=== PATIENT | male | born 1945 | race Caucasian/White ===

== ENCOUNTER 2017-01-28 17:25 | Inpatient (IN) | payer MEDICARE ==
[~2017-01-28] VITALS: Ht 177.8 cm; Wt 89.3 kg
[~2017-01-28 17:25] MED LIST: BENADRYL-DPS25 MG PO; CELEXA40 M1 PO; DULCOLAX10 MG PR; EFFEXOR XR75 MG PO; GABAPENTIN300 MG PO; IRON325 MG PO; LORTAB 7.5-3251 EACH PO; MAALOX DPS30 ML PO; MIRALAX17 GM PO; NITROSTAT0.4 MG PO; PERCOCET 7.5-31 EACH PO; PROVENTIL2.5 MG/3 M IH; TYLENOL DPS325 MG PO; VITAMIN D-32000 UNI1 PO; ZITHROMAX500 MG PO
--- NOTE | 2017-01-29 00:04 | ER ---
ADMIT: 01/28/2017 RM/LOC: ER [facility] MR#: [id number] [address] [address] IVONNE OSRENSEN [address] [place] [address] Emergency Room Report SEX: M AGE: 71 : 1945 DATE: 01/28/2017 ADDENDUM: TIME: 1725 hours. Please refer to [address] White's T sheet for complete H and P. Briefly, the patient is a 71-year-old who comes in with cough, short of breath, and chills. It has been going on for couple days. He has a longstanding history of COPD, he is not O2 dependent at this time. He continues to smoke a pack a day. He said he is coughing up a lot of phlegm. He has felt chilled. PHYSICAL EXAM: VITAL SIGNS: Here blood pressure 159/94, pulse 69, respirations 26, temp 98.3, and sat 97%. GENERAL: No acute distress. HEENT: Grossly normal. LUNGS: Coarse with expiratory wheezes. EMERGENCY DEPARTMENT COURSE: He was given a DuoNeb, Decadron 20 IV. Sepsis protocol was established. Chest x-ray revealed COPD with left lower lobe infiltrate. CBC normal except hemoglobin 13.3 and platelets 134. Chemistries normal except sodium 131. Lactate was normal. Cardiac enzymes negative. Blood cultures x2 were sent. ABG showed a pH 7.4, pCO2 of 33, PO2 of 62. Started him on an antibiotic in the Emergency Department. I called the sepsis protocol. I talked to Dr. Michel, will admit to the hospital. ASSESSMENT: 1. Left lower lobe pneumonia. 2. Chronic obstructive pulmonary disease exacerbation. 3. Hypoxemia, requiring O2 here. 4. Nicotine abuse. PLAN: Admit to the hospital. Sekou Emmanuel MD/ shavon JOB #: [id number] CC: Jeremy White MD, Attending Physician Jamal Ennis MD, Family Physician
[2017-01-31] MEDS ORDERED: MUCINEX600 MG PO (20:34)
[2017-01-31] MEDS ORDERED: LEVAQUIN DPS750 MG PO (20:36)
[2017-01-31] MEDS ORDERED: DUONEB DPS3 ML IH (20:36)
--- NOTE | 2017-02-04 09:12 | DS ---
ADMIT: 01/28/2017 RM/LOC: 410 [facility] MR#: [id number] [address] [address] IVONNE SORENSEN [address] [place] [address] Discharge Summary SEX: M AGE: 71 : 1945 ADMISSION DATE: 01/28/2017 DISCHARGE DATE: 01/31/2017 FINAL DIAGNOSES: 1. Acute hypoxic respiratory failure. 2. Left lower lobe pneumonia. 3. COPD (chronic obstructive pulmonary disease) exacerbation. 4. Chronic COPD (chronic obstructive pulmonary disease). 5. Hypertension. 6. Hyperlipidemia. 7. Smoker. 8. Chronic back pain. 9. Chronic narcotic use. 10.Depression. 11.Anxiety. 12.Gastroesophageal reflux. REASON FOR ADMISSION: The patient is a 71-year-old, white male, who presented to the hospital with increasing shortness of breath, weakness and productive cough. Has a history of COPD and was not improving with outpatient treatments. Was noted to be quite wheezy scattered rhonchi on admission and was requiring oxygen which he does not usually at home. HOSPITAL COURSE: The patient was admitted and started on vancomycin, IV steroids and given DuoNebs. Cardiac enzymes were also checked and were negative. Continued on his other home medications. Did improve gradually over the next couple of days. Levaquin was added for coverage. Also added Mucinex which helped him produce some sputum. Blood cultures were negative. He was able to be on room air by 01/31, was feeling better and felt ready to discharge. DISCHARGE INSTRUCTIONS: The patient will be discharged to home with followup with Dr. Ennis in two weeks. DISCHARGE MEDICATIONS: 1. Aspirin 81 mg daily. 2. Coreg 25 mg b.i.d. 3. Trazodone 200 mg at bedtime. 4. Effexor XR 150 mg daily. 5. Levaquin 750 mg daily for 7 more doses. 6. Mucinex 1200 mg b.i.d. ADMIT: 01/28/2017 RM/LOC: 410 [facility] MR#: [id number] [address] [address] IVONNE SORENSEN [address] [place] [address] Discharge Summary SEX: M AGE: 71 : 1945 7. Neurontin 600 mg b.i.d. 8. Protonix 40 mg b.i.d. 9. Soma 350 mg q.i.d. 10.Multivitamin daily. 11.Vitamin B12 1000 mcg daily. 12.Zestril 20 mg b.i.d. 13.Zocor 5 mg at bedtime. 14.DuoNebs q.i.d. and q.2 hours p.r.n. 15.Prednisone taper starting at 40 mg daily and tapering off over the next 16 days. 16.He also uses Percocet 10 1-2 every 4 hours as needed. 17.Zofran 8 mg q.8 hours p.r.n. Katty Fung MD/ gardenia JOB #: [id number] CC: Jamal Ennis MD, Attending Physician Jamal Ennis MD, Family Physician
[2017-02-08] MEDS ORDERED: NORVASC2.5 MG PO (10:14)
[2017-02-08] MEDS ORDERED: NICODERM CQ1 EAC1 TP (10:15)
--- NOTE | 2017-02-15 13:17 | HP ---
ADMIT: 01/28/2017 RM/LOC: 410 [facility] MR#: [id number] [address] [address] IVONNE SORENSEN [address] [place] [address] History and Physical SEX: M AGE: 71 : 1945 DATE OF SERVICE: CHIEF COMPLAINT: Shortness of breath, lethargy times 1-2 days. HISTORY OF PRESENT ILLNESS: The patient is a 71-year-old male with a multitude of chronic illnesses, who states that for the last 2-3 days, he has been more tired, but specifically the last 24 hours, he has been more short of breath. He states he was out mowing the yard yesterday, and afterward he started becoming more short of breath and coughing more. He denies any chest pain or palpitations. He also denies having any seasonal allergies. He says he has been coughing but for the most part has been just normal sputum production, no green or yellow. Daughter mentions that he has been more lethargic and she has been having to yell at him to get his attention over the last couple of days as well. He denies any other upper respiratory symptoms like rhinorrhea or sore throat or sinus congestion. Denies fever, but he does mention he has been having some chills and some body aches as well. The patient presented to the ER and he was hypoxic. Initially, he was started on supplemental oxygen, and he was meeting sepsis criteria, so that protocol was put in place in the ER. PAST MEDICAL HISTORY: Significant for hypertension, COPD, depression, hyperlipidemia, chronic pain syndrome, organic sleep apnea, nicotine dependence. PAST SURGICAL HISTORY: Significant for back fusion L4-S1 spine, nephrectomy for renal cell cancer, surgery for esophageal cancer, appendectomy, and hernia surgery. SOCIAL HISTORY: Former alcoholic, currently smokes. Denies any drug use. He is on chronic pain medications. ALLERGIES: INCLUDE PENICILLIN AND SULFA DRUGS. FAMILY HISTORY: Significant for stroke, heart disease, depression, and lung cancer. REVIEW OF SYSTEMS: CONSTITUTIONAL: Positive chills, body aches, lethargy. No fever. HEENT: Positive for headache. No sore throat. No rhinorrhea. No ear discharge or ear pain. No visual changes. HEART: No palpitations. No chest pain. LUNGS: Positive shortness of breath. Positive for wheeze. Positive crackles. Positive for shortness of breath. ABDOMEN: No change in bowel movements. No pain. No nausea or vomiting. EXTREMITIES: No edema, but he does mention he has chronic aches and pains, specifically chronic back pain. NEURO: Cranial nerves II through XII are grossly intact. LABORATORY AND X-RAY DATA: UA was normal. Chest x-ray shows mild bilateral ADMIT: 01/28/2017 RM/LOC: 410 [facility] MR#: [id number] [facility] [place] [id number] SORENSENIVONNE ESCOBAR [address] [place] [address] History and Physical SEX: M AGE: 71 : 1945 atelectasis versus consolidation . Procalcitonin was normal. Blood cultures were drawn and are pending. Lactic acid is normal at 0.6. INR is 1.04. Electrolytes; sodium is slightly low at 131, potassium 4.4, 106 chloride, 22 C02, 9 for BUN, 0.8 for creatinine, glucose is 89. AST, ALT, and bilirubin are normal. ABG in the ER showed a normal pH of 7.402, CO2 of 33.8 and O2 of 62. CBC: White blood cell count was 6.4, hemoglobin 13.3, platelets were low at 134. ASSESSMENT AND PLAN: This is a 71-year-old male who presents with shortness of breath, cough, and lethargy over the last few days. 1. Acute respiratory failure with hypoxia requiring oxygen. 2. Left lower lobe pneumonia versus atelectasis. 3. Chronic obstructive pulmonary disease exacerbation. 4. Hypertension. 5. Hyperlipidemia. 6. Nicotine abuse. I will admit this patient and start him on antibiotic, steroids, and DuoNebs. I will continue to monitor his vital signs and electrolytes. Patient's chronic medical problems like his hypertension and hyperlipidemia in accordance with his home regimen. We will also continue patient's current pain medications as scheduled. Keisha Ray MD Resident / Jamal Ennis MD / shavon JOB #: [id number] CC: Jamal Ennis, Attending Physician Jamal Ennis, Family Physician
[2017-03-07] MEDS ORDERED: VITAMIN B-121000 MCG PO (19:38)
[2017-03-07] MEDS ORDERED: DELTASONE DPS1 MG (19:39)
[2017-03-07] MEDS ORDERED: BREO ELLIPTA 21 EACH IH (19:40)
[2017-03-07] MEDS ORDERED: LEVAQUIN DPS750 MG PO (19:40)
[2017-03-07] MEDS ORDERED: PROAIR HFA8.5 GM IH (19:41)
[2017-05-18] MEDS ORDERED: ASA CHILDREN'S81 MG PO (16:10)
[2017-05-18] MEDS ORDERED: CENTRUM SILVER1 EAC1 PO (16:10)
[2017-05-18] MEDS ORDERED: ZESTRIL20 MG PO (16:10)
[2017-05-18] MEDS ORDERED: PROTONIX40 MG PO (16:10)
[2017-05-18] MEDS ORDERED: ZOCOR DPS10 MG PO (16:10)
[2017-05-18] MEDS ORDERED: EFFEXOR XR150 MG PO (16:11)
[2017-05-18] MEDS ORDERED: DESYREL DPS100 MG PO (16:11)
[2017-05-18] MEDS ORDERED: CARVEDILOL25 MG PO (16:11)
[2017-05-18] MEDS ORDERED: SOMA350 MG PO (16:12)
[2017-05-18] MEDS ORDERED: PERCOCET 10-321 EACH PO (16:12)
[2017-05-18] MEDS ORDERED: NEURONTIN DPS600 MG PO (16:12)
[2017-05-18] MEDS ORDERED: ZOFRAN DPS8 MG PO (16:14)
[2017-05-18] MEDS ORDERED: LASIX DPS40 MG PO (16:34)
[2017-05-18] MEDS ORDERED: IRON325 M1 PO (16:36)
[2017-05-18] MEDS ORDERED: MEN'S MULTI-VI1 EACH PO (16:36)
[2017-05-18] MEDS ORDERED: VITAMIN D1000 UNI1 PO (16:36)
[2017-05-18] MEDS ORDERED: MUCINEX600 MG PO (16:36)
[2017-05-18] MEDS ORDERED: PULMICORT0.25 MG/1 IH (16:37)
[2017-05-18] MEDS ORDERED: IPRATROPIU0.2 MG/1 M IH (16:38)
[2017-05-18] MEDS ORDERED: ALBUTEROL0.63 MG/3 IH (16:38)
[2017-05-18] MEDS ORDERED: NICOTINE PATCH1 EAC1 TD (16:39)
[2017-05-18] MEDS ORDERED: COLACE-DPS100 MG PO (16:40)
[2017-05-18] MEDS ORDERED: MAALOX DPS30 ML PO (16:40)
[2017-05-18] MEDS ORDERED: NITROSTAT0.4 MG SL (16:40)
[2017-05-18] MEDS ORDERED: SPIRIVA18 MCG IH (16:40)
[2017-05-18] MEDS ORDERED: TYLENOL DPS325 MG PO (16:40)
[2017-05-26] MEDS ORDERED: PROVENTIL2.5 MG/3 M IH (13:55)
[2017-05-26] MEDS ORDERED: DUONEB DPS3 ML IH (13:55)
[2017-05-26] MEDS ORDERED: STIOLTO RESPIMAT4 GM IH (13:56)
[2017-05-26] MEDS ORDERED: FLOMAX DPS0.4 MG PO (13:56)
[2017-05-26] MEDS ORDERED: BIAXIN500 MG PO (13:57)
[2017-05-26] MEDS ORDERED: PHENERGAN DPS25 MG PO (13:57)
[2017-05-26] MEDS ORDERED: PERCOCET 10-321 EACH PO (13:57)
[2017-05-26] MEDS ORDERED: KLOR-CON M2020 ME1 PO (13:57)
== END 2017-01-31 11:45 | disposition home or self-care (01) | DRG 189 ==
LOC: ER 17:25 → 4PCU 19:15
PROVIDERS: ADMIT Family Medicine
DX: J96.01 Acute respiratory failure with hypoxia (principal); J18.9 Pneumonia, unspecified organism; J44.0 Chronic obstructive pulmonary disease with (acute) lower respiratory infection; J44.1 Chronic obstructive pulmonary disease with (acute) exacerbation; F17.210 Nicotine dependence, cigarettes, uncomplicated; I10 Essential (primary) hypertension; F10.21 Alcohol dependence, in remission; F32.9 Major depressive disorder, single episode, unspecified; F41.9 Anxiety disorder, unspecified; M54.9 Dorsalgia, unspecified; K21.9 Gastro-esophageal reflux disease without esophagitis; E78.5 Hyperlipidemia, unspecified; G89.4 Chronic pain syndrome; G47.30 Sleep apnea, unspecified; Z98.1 Arthrodesis status; Z90.5 Acquired absence of kidney; Z85.528 Personal history of other malignant neoplasm of kidney; Z85.01 Personal history of malignant neoplasm of esophagus

== ENCOUNTER 2017-02-03 16:12 | Inpatient (IN) | payer MEDICARE ==
[~2017-02-03] VITALS: Ht 177.8 cm; Wt 89.7 kg
[~2017-02-03 16:12] MED LIST changes: +DUONEB DPS3 ML IH; +LEVAQUIN DPS750 MG PO; +MUCINEX600 MG PO
--- NOTE | 2017-02-05 16:16 | ER ---
ADMIT: 02/03/2017 RM/LOC: 427 [facility] MR#: [id number] [address] [address] IVONNE SORENSEN [address] [place] [address] Emergency Room Report SEX: M AGE: 71 : 1945 DATE: 02/03/2017 ADDENDUM: This is a 71-year-old white male with known COPD. Recently admitted for acute pneumonia and/or bronchitis, discharged Thursday, was doing well except he did go back and start smoking again. He is weaker. He is short of breath. Chest x-ray actually looks a little better. He is not septic. His pressure was fine. His white count was 10.8. His lactate was 1.2. Chest x-ray actually looked pretty good at this time. At this time, we have given him DuoNeb. We are going to give him some steroids. We are going to cover him with antibiotics and then they will admit him. CONDITION ON DISCHARGE: Serious, but stable. Jeremy hWite MD/ shavon JOB #: [id number] CC: Jamal Ennis MD, Attending Physician Jamal Ennis MD, Family Physician
[2017-02-08] MEDS ORDERED: NORVASC2.5 MG PO (10:14)
[2017-02-08] MEDS ORDERED: NICODERM CQ1 EAC1 TP (10:15)
--- NOTE | 2017-02-15 11:58 | HP ---
ADMIT: 02/03/2017 RM/LOC: 427 [facility] MR#: [id number] [address] [address] IVONNE SORENSEN [address] [place] [address] History and Physical SEX: M AGE: 71 : 1945 DATE OF SERVICE: CHIEF COMPLAINT: Shortness of breath, wheezing, cough, and some fatigue. HISTORY OF PRESENT ILLNESS: The patient is a 71-year-old male with a multitude of chronic illnesses who was actually just recently here in the hospital, recently discharged on 01/31/2017 for the exact same symptoms. At that time, the patient was admitted for an acute exacerbation of the COPD and possible left lower lobe pneumonia. The patient was treated with antibiotics, steroids, and DuoNebs and continued to improve and he again left on 01/31/2017. The patient admits to going home and continuing to smoke. He does confirm that he has been taking his medications as prescribed, but he just started having more shortness of breath over the last day or so and is also becoming more fatigued. He felt that he is wheezy and the coughing was worse. Denies chest pain or palpitations. Sputum production has been normal, no green or yellow. He does have a little bit of a sore throat, but no sinus congestion. Denies fever or body aches, has not noticed any swelling in his lower extremities or edema in his lower extremities. No nausea, vomiting, or diarrhea. He has had some constipation; however. The patient states he is having no problems with urination. No burning or blood in the urine. The patient was meeting sepsis criteria when he arrived to the ER, so sepsis protocol was instituted at that time. PAST MEDICAL HISTORY: Significant for COPD, hypertension, depression, hyperlipidemia, chronic pain syndromes, organic sleep apnea, and nicotine dependence. He also has a history of alcoholism. PAST SURGICAL HISTORY: Back fusion of L4-S1, nephrectomy for renal cell cancer, surgery for esophageal cancer, appendectomy, and hernia repair. SOCIAL HISTORY: Former alcoholic, currently smokes. Denies any other drug use. He is on chronic pain medications. Lives at home with his , who also is a chronic smoker. ALLERGIES: INCLUDE PENICILLIN AND SULFA DRUGS. FAMILY HISTORY: Significant for stroke, heart disease, depression, and lung cancer. REVIEW OF SYSTEMS: CONSTITUTIONAL: Negative for fever. Positive for fatigue. No body aches or chills. HEENT: No headache. No rhinorrhea. No ear discharge or ear pain. No visual changes or eye pain. He does have some sore throat, however, with coughing. HEART: No chest pain. No palpitations. No lower extremity edema. LUNGS: Positive for shortness of breath. Positive for wheezing. Positive for worsening shortness of breath with exertion. ABDOMEN: No change in nausea and vomiting. No pain. He does have some constipation. EXTREMITIES: No edema. No erythema or rashes. Does have some chronic ADMIT: 02/03/2017 RM/LOC: 427 [facility] MR#: [id number] [address] [place] [id number] IVONNE SORENSEN [address] [place], [place] [address] [address] History and Physical SEX: M AGE: 71 : 1945 arthritis in his lower extremities especially, has some arthritis in his low back and neck. NEUROLOGIC: No seizure or stroke-like activities. Feels like he has good strength in his muscles. ER workup shows a chest x-ray that appears to be unchanged since the last chest x-ray on 01/30/2017, maybe some vascular congestion. Procal was normal less than 0.05. Blood cultures are pending. Lactic acid is 1.2. INR is 1.15. White blood cell count was mildly elevated at 10.8, hemoglobin is 13.8, and platelets are 179. Cardiac enzymes; CK was 59, MB was 2.7, and troponin was 0.026. Electrolytes; sodium is slightly low at 133, potassium is 4.2, chloride is 98, CO2 is 29, BUN of 16, creatinine of 1, and glucose of 108. PHYSICAL EXAMINATION: VITAL SIGNS: Temperature is 99.0 when arriving to the floor, heart rate was 67, respirations are 20, blood pressure was initially 174/98. On retake, it was 153/75. GENERAL: No acute distress. He is alert and oriented x3, very pleasant. HEENT: Normocephalic and atraumatic. Moist mucous membranes. Extraocular muscles are intact. Pupils equal, round, and reactive. HEART: Regular rate and rhythm. No murmur. LUNGS: Coarse breath sounds bilaterally and wheezing bilaterally with increased work of breathing. ABDOMEN: Soft, nontender. Positive bowel sounds. EXTREMITIES: No signs of edema, erythema, or joint swelling. NEUROLOGIC: Cranial nerves II through XII are grossly intact. ASSESSMENT AND PLAN: This is a 71-year-old male, who presents with shortness of breath, cough, and wheezing, most recently being discharged from the hospital for similar symptoms on 01/31/2017. 1. Acute chronic obstructive pulmonary disease exacerbation. 2. Hypertension. 3. Hyperlipidemia. ADMIT: 02/03/2017 RM/LOC: 427 [facility] MR#: [id number] [address] [place] [phone] IVONNE SORENSEN [facility] [place] [address] History and Physical SEX: M AGE: 71 : 1945 4. Nicotine dependence. The patient was sent out on p.o. Levaquin, p.o. steroids, and DuoNeb. We will continue the patient's DuoNeb, but we will start the patient on IV antibiotics and IV steroids. The patient does voice to me that he would like to quit smoking. He says he has tried Chantix in the past that made him feel suicidal. He is unsure if he has tried Wellbutrin. This may be worth giving a try as an outpatient when the patient is no longer nicotine patches. We have discussed at length the importance of quitting smoking both for his health and his immediate conditions. We discussed how in that this is probably one of the main reasons he is back here in the hospital because he continues to smoke. I will continue to monitor the patient's vital signs, electrolytes, and blood work. Keisha Ray MD Resident / Joseph Rossi MD / shavon JOB #: [id number] CC: Jamal Ennis, Attending Physician Jamal Ennis, Family Physician
--- NOTE | 2017-02-20 07:59 | DS ---
ADMIT: 02/03/2017 RM/LOC: 427 [facility] MR#: [id number] [address] [address] IVONNE SORENSEN [address] [place] [address] General Discharge Summary SEX: M AGE: 71 : 1945 ADMISSION DATE: 02/03/2017 DISCHARGE DATE: 02/06/2017 FINAL DIAGNOSES: 1. Acute chronic obstructive pulmonary disease exacerbation. 2. Chronic obstructive pulmonary disease. 3. Hypertension. 4. Hyperlipidemia. 5. Current smoker. 6. Chronic back pain. 7. Chronic narcotic use. 8. Depression and anxiety. 9. Gastroesophageal reflux disease. REASON FOR ADMIT: The patient is a 71-year-old white male, who presented to the hospital with increasing shortness of breath. The patient was actually just recently discharged from the hospital for similar symptoms and was found to have COPD exacerbation and left lower lobe pneumonia. He has a history of COPD. He was noted to be wheezy and has scattered rhonchi on admission bilaterally and he was requiring oxygen at the time of arrival to the ER. Chest x-ray did not show acute pneumonia at the 2nd admission. HOSPITAL COURSE: The patient was admitted, started on IV Levaquin and later was added on to IV Rocephin. He was also started on IV steroids and DuoNeb. We continued his other home medications. The patient did gradually improve over the next few days. The patient was able to transition to room air the following day after admission, he was feeling better and felt ready to discharge. The patient was discharged home with followup in [address] White. DISCHARGE MEDICATIONS: 1. Baby aspirin daily. 2. Effexor 150 mg daily. 3. Mucinex 1200 mg b.i.d. 4. Norvasc 2.5 mg daily. 5. Soma 350 mg q.i.d. 6. Multivitamin B12. 7. Habitrol 21 mg patch TP, at bedtime. 8. Percocet 10 mg two tabs q.4-6 hours as needed. ADMIT: 02/03/2017 RM/LOC: 427 [facility] MR#: [id number] [address] [address] IVONNE SORENSEN [address] [place] [address] General Discharge Summary SEX: M AGE: 71 : 1945 9. Zofran 8 mg q.8 hours as needed. 10.DuoNeb. 11.Protonix 40 mg b.i.d. 12.Simvastatin 5 mg at bedtime. 13.Lisinopril 20 mg b.i.d. 14.Trazodone 200 mg at bedtime. 15.Coreg 12.5 mg b.i.d. 16.Gabapentin 600 mg b.i.d. 17.Levofloxacin 750 mg for 7 more days. 18.ProAir as needed. 19.He is also sent on a prednisone taper and was highly stressed that he should not continue smoking. Keisha Ray MD Resident / Jamal Ennis MD / modl JOB #: [id number] CC: Jamal Ennis MD, Attending Physician Jamal Ennis MD, Family Physician
[2017-03-07] MEDS ORDERED: VITAMIN B-121000 MCG PO (19:38)
[2017-03-07] MEDS ORDERED: DELTASONE DPS1 MG (19:39)
[2017-03-07] MEDS ORDERED: BREO ELLIPTA 21 EACH IH (19:40)
[2017-03-07] MEDS ORDERED: LEVAQUIN DPS750 MG PO (19:40)
[2017-03-07] MEDS ORDERED: PROAIR HFA8.5 GM IH (19:41)
[2017-05-18] MEDS ORDERED: ZOCOR DPS10 MG PO (16:10)
[2017-05-18] MEDS ORDERED: ZESTRIL20 MG PO (16:10)
[2017-05-18] MEDS ORDERED: CENTRUM SILVER1 EAC1 PO (16:10)
[2017-05-18] MEDS ORDERED: ASA CHILDREN'S81 MG PO (16:10)
[2017-05-18] MEDS ORDERED: PROTONIX40 MG PO (16:10)
[2017-05-18] MEDS ORDERED: DESYREL DPS100 MG PO (16:11)
[2017-05-18] MEDS ORDERED: CARVEDILOL25 MG PO (16:11)
[2017-05-18] MEDS ORDERED: EFFEXOR XR150 MG PO (16:11)
[2017-05-18] MEDS ORDERED: NEURONTIN DPS600 MG PO (16:12)
[2017-05-18] MEDS ORDERED: SOMA350 MG PO (16:12)
[2017-05-18] MEDS ORDERED: PERCOCET 10-321 EACH PO (16:12)
[2017-05-18] MEDS ORDERED: ZOFRAN DPS8 MG PO (16:14)
[2017-05-18] MEDS ORDERED: LASIX DPS40 MG PO (16:34)
[2017-05-18] MEDS ORDERED: MUCINEX600 MG PO (16:36)
[2017-05-18] MEDS ORDERED: IRON325 M1 PO (16:36)
[2017-05-18] MEDS ORDERED: MEN'S MULTI-VI1 EACH PO (16:36)
[2017-05-18] MEDS ORDERED: VITAMIN D1000 UNI1 PO (16:36)
[2017-05-18] MEDS ORDERED: PULMICORT0.25 MG/1 IH (16:37)
[2017-05-18] MEDS ORDERED: ALBUTEROL0.63 MG/3 IH (16:38)
[2017-05-18] MEDS ORDERED: IPRATROPIU0.2 MG/1 M IH (16:38)
[2017-05-18] MEDS ORDERED: NICOTINE PATCH1 EAC1 TD (16:39)
[2017-05-18] MEDS ORDERED: MAALOX DPS30 ML PO (16:40)
[2017-05-18] MEDS ORDERED: COLACE-DPS100 MG PO (16:40)
[2017-05-18] MEDS ORDERED: NITROSTAT0.4 MG SL (16:40)
[2017-05-18] MEDS ORDERED: SPIRIVA18 MCG IH (16:40)
[2017-05-18] MEDS ORDERED: TYLENOL DPS325 MG PO (16:40)
[2017-05-26] MEDS ORDERED: PROVENTIL2.5 MG/3 M IH (13:55)
[2017-05-26] MEDS ORDERED: DUONEB DPS3 ML IH (13:55)
[2017-05-26] MEDS ORDERED: FLOMAX DPS0.4 MG PO (13:56)
[2017-05-26] MEDS ORDERED: STIOLTO RESPIMAT4 GM IH (13:56)
[2017-05-26] MEDS ORDERED: KLOR-CON M2020 ME1 PO (13:57)
[2017-05-26] MEDS ORDERED: PHENERGAN DPS25 MG PO (13:57)
[2017-05-26] MEDS ORDERED: BIAXIN500 MG PO (13:57)
[2017-05-26] MEDS ORDERED: PERCOCET 10-321 EACH PO (13:57)
== END 2017-02-06 10:03 | disposition home or self-care (01) | DRG 192 ==
LOC: ER 16:12 → 4PCU 19:00
PROVIDERS: ADMIT Family Medicine
DX: J44.1 Chronic obstructive pulmonary disease with (acute) exacerbation (principal); I10 Essential (primary) hypertension; J20.9 Acute bronchitis, unspecified; J44.0 Chronic obstructive pulmonary disease with (acute) lower respiratory infection; F32.9 Major depressive disorder, single episode, unspecified; E78.5 Hyperlipidemia, unspecified; F17.210 Nicotine dependence, cigarettes, uncomplicated; F41.9 Anxiety disorder, unspecified; G89.4 Chronic pain syndrome; G47.30 Sleep apnea, unspecified; K59.00 Constipation, unspecified; F10.21 Alcohol dependence, in remission; Z98.1 Arthrodesis status; Z85.528 Personal history of other malignant neoplasm of kidney; Z90.5 Acquired absence of kidney; Z85.01 Personal history of malignant neoplasm of esophagus

== ENCOUNTER 2017-03-01 13:19 | Inpatient (IN) | payer MEDICARE ==
[~2017-03-01] VITALS: Ht 177.8 cm; Wt 86.2 kg
--- NOTE | ~2017-03-01 | ECH ---
Transthoracic Echocardiography Report (TTE) Demographics Patient Name IVONNE SORENSEN Date of Study 03/02/2017 Patient Number [id number] Visit Number [id number] Date of 1945 Room Number 407 Accession Number [id number] Gender Male Age 71 year(s) Referring Rene HOFFMAN Director Of User Experience Maia Vazquez [facility] Physician Andrea Malhotra MD Physician Interpreting Sunshine Holden MD Equity Research Associate Physician Supervising Ordering Physician Carole Malhotra MD, MD/P Nurse Stress Checkering Machine Adjuster Conclusions Summary Technically fair exam, apical and subcostal images good quality. The estimated left ventricular ejection fraction is 45%. Mild segmental wall motion abnormalities noted. Mild to moderate left ventricular hypertrophy. The left atrium is severely dilated by LA volume index measurement. No significant valvular abnormalities. Procedure Type of Study TTE procedure:Echo Complete SF. Procedure Date Date: 03/02/2017 Start: 08:53 AM Technical Quality: Adequate visualization Indications:Dyspnea and Congestive heart failure. Appropriate Use Criteria: 9 Height: 70 inches Weight: 190 pounds BSA: 2.04 m Rhythm: Irregular HR: 81 bpm BP: 118/72 mmHg M-Mode/2D Measurements LV Diastolic Dimension: 5.29 cm LV Systolic Dimension: 4.93 cm LV Septum Diastolic: 1.12 cm LV PW Diastolic: 1.37 cm AO Root Dimension: 3.51 cm Cardiac Output: 5.39 l/min LA Dimension: 3.58 cm Cardiac Index: 2.64 l/min*m LA volume index: 49 ml/m LVOT: 2.38 cm RV Base: 3.9 cm LVOT VTI: 14.96 cm RV Mid: 2.7 cm LV Stroke volume: 66.52 ml RV Length: 8.4 cm LV Stroke volume index: 32.61 ml/m TAPSE: 3 cm Doppler Measurements AV Peak Velocity: 1.26 m/s MV Peak E-Wave: 1.1 m/s AV Peak Gradient: 6.35 mmHg AV Mean Gradient: 3.59 mmHg LVOT Peak Velocity: 0.84 m/s AV Area (Continuity):3.28 cm PV Peak Velocity: 1.14 m/s TR Velocity:1.95 m/s PV Peak Gradient: 5.22 mmHg TR Gradient:15.14 mmHg Estimated PASP: 20.14 mmHg Estimated RAP:5 mmHg Estimated RVSP: 20 mmHg RA Area: 20.84 cm Findings Left Ventricle The left ventricle is normal in size . Mild to moderate left ventricular hypertrophy. Diastolic function indeterminate due to patient's arrhythmia. Right Ventricle Normal right ventricle structure and function. Left Atrium The left atrium is severely dilated by LA volume index measurement. Right Atrium The right atrium is mildly dilated. Mitral Valve Normal mitral valve structure and function. Trivial mitral regurgitation by color Doppler. Aortic Valve The aortic valve is mildly sclerotic. Tricuspid Valve Normal appearing tricuspid valve. Mild tricuspid regurgitation by color Doppler. Estimated pulmonary pressures within normal limits. Pulmonic Valve Normal pulmonic valve structure and function. Pericardial Effusion No evidence of pericardial effusion. Miscellaneous Visualized portions of the aortic root and ascending aorta appear normal in size. Pleural Effusion No evidence of pleural effusion. Contractility Score LV regional wall motion:(0-Non visualized 1-Normal 2-Hypokinesis 3-Akinesis 4-Dyskinesis 5-Aneurysm) Signature
[~2017-03-01 13:19] MED LIST changes: +NICODERM CQ1 EAC1 TP; +NORVASC2.5 MG PO
--- NOTE | 2017-03-04 07:25 | CO ---
ADMIT: 03/01/2017 RM/LOC: 619 [facility] MR#: [id number] [address] [address] IVONNE TORRES [address] [place] [address] Consultation SEX: M AGE: 71 : 1945 DATE OF CONSULTATION: 03/03/2017 ATTENDING PHYSICIAN: Jamal Ennis CONSULTING PHYSICIAN: Finn Cannon MD HISTORY OF PRESENT ILLNESS: Mr. Torres is a pleasant, unfortunate, 71-year- old, white male with history of coronary artery disease, congestive cardiomyopathy with ejection fraction of 45%, and significant COPD (no stage currently present). He has been hospitalized a number of occasions recently, and two times last month in January. He was admitted again through the Emergency Department on 03/01/2017 when he presented with increasing shortness of breath, cough, and exertional dyspnea. Unfortunately, he continues to smoke even up to two packs of cigarettes a day. He is not routinely using oxygen at home. He was admitted through the emergency room, and felt to have a little bit of congestive heart failure. However, echocardiogram shows an ejection fraction about 45%. He does have history of coronary artery disease, but no recent acute cardiac events. As mentioned above, he continues to smoke up to two packs cigarettes a day. He is and lives at home with his . He still has been able to do his house work and yard work, but is significantly short of breath. He does have a nebulizer at home that he is using up to 6 times a day as well as a ProAir inhaler. He is not currently on any controlling agent. He does have obstructive sleep apnea, and is on CPAP at night. PAST MEDICAL HISTORY: Significant for COPD. He has smoking/nicotine addiction. He has history of coronary artery disease, with cardiomyopathy, preserved ejection fraction of 45%. History of hypertension, hyperlipidemia, previous history of renal cell cancer, status post right nephrectomy. Also, he has previous history of esophageal cancer with surgery. He has had previous gastroesophageal reflux, pancreatitis, and history of ascending aortic aneurysm on surveillance. ALLERGIES: HE HAS LISTED MEDICAL ALLERGY TO PENICILLIN AND SULFA. MEDICATIONS: Listed home medications include; 1. Aspirin 81 mg daily. 2. Pantoprazole 40 mg b.i.d. 3. Simvastatin 5 mg at bedtime. 4. Lisinopril 20 mg b.i.d. 5. Multivitamin daily. 6. Effexor XR 150 mg daily. 7. Trazodone 200 mg daily. 8. Carvedilol 12.5 mg b.i.d. ADMIT: 03/01/2017 RM/LOC: 619 [facility] MR#: [id number] [address] [address] IVONNE TORRES [address] [place] [address] Consultation SEX: M AGE: 71 : 1945 9. Gabapentin 600 mg b.i.d. He uses Percocet p.r.n. SOCIAL HISTORY: He is , lives at home with his . He is retired. He still smokes up to two packs of cigarettes a day. He has never quit. He states that he enjoys smoking, really has no intention of quitting. FAMILY HISTORY: Significant for coronary artery disease, stroke, diabetes, and previous cancer. REVIEW OF SYSTEMS: As above. All organ systems reviewed significant positives and negatives discussed above. Additionally, denies headaches, lightheadedness, or dizziness. He states he generally feels well-rested in the morning. He still has been able to mow his lawn. He is not having any chest pain. He uses self-propelled lawn mowers. He also does his house work. He does not exercise on a regular basis. states that he frequently will "over exert himself" to the point where he nearly passes out because he gets too short of breath. PHYSICAL EXAMINATION: VITAL SIGNS: He is currently afebrile. Blood pressure 130/70, pulse 100. Oxygen saturation on room air 94%. GENERAL: This is a well-developed, well-nourished, pleasant white male. No acute respiratory distress at rest. HEENT: Shows head to be normocephalic and atraumatic. Pupils equal and reactive. Nares patent. Posterior hypopharynx clear. NECK: Supple without adenopathy. LUNGS: Revealed mild hyperinflation. He has bilateral wheezes with central rhonchi. More prominent on the right than on the left. HEART: Regular, slightly tachycardic. No murmur. ABDOMEN: Soft, nondistended, nontender without organomegaly or masses. EXTREMITIES: Showed no significant clubbing, cyanosis, or significant peripheral edema. NEURO: He is awake, alert, and oriented. Mood and affect are appropriate. He has labs and x-rays performed. ASSESSMENT: Acute exacerbation of chronic obstructive pulmonary disease. He has been started on IV steroids, we will continue with. He is using nebulizer treatments, which I would continue. Additionally, I am going to start him on a controlling agent with Breo Ellipta 200/25 one inhalation daily and a long- acting antimuscarinic with Spiriva 18 mcg capsule inhaled daily. He has nicotine/smoking addiction. Talked about the need to quit, monthly various strategies with him. Suggested potentially using an electronic cigarette which may be helpful, at least begin to try and reduce his smoking. The fact that he has frequent exacerbations portends a bad prognosis. I would ADMIT: 03/01/2017 RM/LOC: 619 [facility] MR#: [id number] [facility] [address] [address] IVONNE TORRES [address] [place] [address] Consultation SEX: M AGE: 71 : 1945 like to check pulmonary function testing to get a baseline lung function as he has not had them in several years. Additionally, we will check a nocturnal trend oximetry tonight on his CPAP to see if he desaturates at night. He potentially needs oxygen along with the CPAP at night. He has nonischemic cardiomyopathy with relatively preserved ejection fraction around 45%. He is being followed by Cardiology. He is currently on Lasix. He has hypertension, hyperlipidemia, on medical management. We will continue to follow in the hospital with you and further recommendations following evaluation and response to treatments and therapies. Finn Cannon MD/ brennanl JOB #: [id number] CC: Jamal Ennis, Attending Physician Jamal Ennis, Family Physician
--- NOTE | 2017-03-06 07:43 | HP ---
ADMIT: 03/01/2017 RM/LOC: 407 [facility] MR#: [id number] [address] [address] IVONNE SORENSEN [address] [place] [address] History and Physical SEX: M AGE: 71 : 1945 DATE OF SERVICE: CHIEF COMPLAINT: Congestive heart failure, shortness of breath, cough. HISTORY OF PRESENT ILLNESS: A 71-year-old male who was hospitalized here to [place] on February 03, 2017 with cough, congestion, wheezing, shortness of breath. At that time, was exacerbation of his COPD. His states that since going home, he really has not felt like he has improved that much. He continues to have cough, congestion, shortness of breath. It has gotten worse over the last 3 to 4 days. He is coughing up sputum, mostly white in color occasionally, little bit darker and no blood in it. Does admit to having an occasional chest pressure feeling or shortness of breath. It was severe enough to present to the emergency room, where he was evaluated. His proBNP was elevated at 5901. His chest x-ray shows bilateral congestion consistent with congestive heart failure. The patient does admit to increased ankle swelling in the last 2-3 weeks. He has some orthopnea. Denies any PND. He unfortunately has a history of COPD and continues to smoke cigarettes. Cultures obtained in the emergency room. He was started on IV Levaquin along with steroids and IV Lasix. PAST MEDICAL HISTORY: Significant for hypertension, depression, COPD, hyperlipidemia, chronic pain, sleep apnea, and nicotine dependence, prior history of alcohol abuse. PAST SURGICAL HISTORY: Include back fusion of L4-S1, nephrectomy for renal cell cancer, surgery for esophageal cancer, appendectomy, and hernia repair. SOCIAL HISTORY: Currently using tobacco, recovered alcoholic. Denies any other drug use. On chronic pain medications. Lives with his , who is also a chronic smoker. ALLERGIES: PENICILLIN AND SULFA. CURRENT MEDICATIONS: 1. Aspirin 81 mg daily. 2. Simvastatin 5 mg at bedtime. 3. Pantoprazole 40 mg b.i.d. 4. Lisinopril 20 mg b.i.d. 5. Multivitamin one daily. 6. Effexor 150 mg daily. 7. Trazodone 200 mg daily. 8. Coreg 12.5 mg b.i.d. 9. Percocet 10/325 two every 4-6 hours for pain, maximum of 10 per day. 10.Soma compound 350 mg q.i.d. 11.Neurontin 600 mg b.i.d. 12.Zofran 8 mg every 8 hours p.r.n. for nausea. 13.Vitamin B12 one q.a.m. FAMILY HISTORY: Positive for stroke, heart disease, depression, lung cancer. ADMIT: 03/01/2017 RM/LOC: 407 [facility] MR#: [id number] [address] [place] [id number] SORENSENIVONNE [address] [place] [address] History and Physical SEX: M AGE: 71 : 1945 REVIEW OF SYSTEMS: Unchanged from history and physical 3 weeks ago. Please refer to that other than noted in the HPI. PHYSICAL EXAMINATION: GENERAL: A 71-year-old male, alert, cooperative, oriented x3. VITAL SIGNS: In the emergency room, BP is 136/84, respiratory rate 22, pulse 82, temp 98.9, O2 saturation actually is 92-94 on room air. HEENT: He has a harsh bronchitic-type cough. Eyes; PERRLA, EOMs intact. Throat is moist, not inflamed. NECK: Supple. LUNGS: Showed decreased breath sounds at bases. Bilateral rhonchi and wheezes. Occasional inspiratory rale. HEART: Regular rate. No lifts, thrills, heaves, or murmur. ABDOMEN: Obese. No organomegaly or tenderness. AND RECTAL: Deferred. EXTREMITIES: He has +1 edema of the lower extremities. DIAGNOSTIC IMPRESSION: 1. Congestive heart failure. 2. Chronic obstructive pulmonary disease, acute exacerbation. 3. Tobacco abuse. 4. Hypertension. 5. Depression. 6. History of renal cell carcinoma, no evidence of recurrence. 7. History of esophageal cancer, no evidence of recurrence. 8. History of alcohol abuse in remission. 9. History of gastroesophageal reflux disease. 10.History of chronic pain syndrome. PLAN: He is admitted to ICU, was given IV Lasix. We will follow up with additional Lasix. We will monitor his electrolytes. O2 as needed. Twin jet nebulizers. Cultures have been obtained. We will cover with IV Levaquin. Radames Lam MD/ shavon JOB #: [id number] CC: Jamal Ennis, Attending Physician Jamal Ennis, Family Physician
--- NOTE | 2017-03-07 17:03 | CO ---
ADMIT: 03/01/2017 RM/LOC: 407 [facility] MR#: [id number] [address] [address] IVONNE SORENSEN [address] [place] [address] Consultation SEX: M AGE: 71 : 1945 DATE OF CONSULTATION: 03/02/2017 ATTENDING PHYSICIAN: Jamal Ennis CONSULTING PHYSICIAN: Andrea López MD REASON FOR CONSULTATION: Question acute on chronic systolic heart failure and history of nonischemic cardiomyopathy. HISTORY OF PRESENT ILLNESS: The patient is a pleasant 71-year-old male, well known to [facility]. He was last seen by Dr. Tnaner Ennis on December 09, 2016. At that time, he was felt to be euvolemic. Unfortunately, he has been admitted twice to the hospital in January once 01/28 to 01/31 and once 02/03 to 02/06 with COPD exacerbations. He is here with weakness and shortness of breath. His chest x-ray showed some possible fluid and his proBNP was elevated at 5000. He denies any significant lower extremity edema. He does have a cough and states he has had a fever, he thought up to 102 and family in the room states his fever has been 101.6. This ran for about three days a couple of days ago. He does have a history of nonobstructive coronary disease for heart catheterization in 2008 with an 80% ostial diagonal lesion. He has a history of nonischemic cardiomyopathy with an EF of 40% per his last echocardiogram about six months ago. He states that he does have trouble sleeping. He wakes up often at night to use the restroom, but has not had to sleep in a chair. He does wake up coughing and gagging some. He has obstructive sleep apnea and does wear CPAP. He was given IV Lasix in the ER and has since been getting IV 40 mg b.i.d. He states he does not feel much better with the diuresis. I am unable to verify diuresis, however as we do not have accurate I's and Os. PAST MEDICAL HISTORY: Severe COPD, ongoing tobacco abuse, diabetes, hypertension, hyperlipidemia, history of alcohol use, degenerate joint disease, depression, osteoarthritis, history of renal cell cancer status post nephrectomy on the right, history of esophageal cancer, history of GERD, pancreatitis, obstructive sleep apnea, back surgery x2, sinus creeping with MRSA positive, nephrectomy on the right side, and esophagectomy for surgical history. He also has a known history of an ascending aortic aneurysm at 4 cm. MEDICATIONS: Include aspirin 81 mg p.o. daily, Coreg 12.5 mg p.o. b.i.d., Desyrel 200 mg p.o. at bedtime, Effexor 150 mg p.o. daily, Neurontin 600 mg p.o. b.i.d., Protonix 40 mg p.o. b.i.d., Soma 350 mg p.o. q.6 hours therapeutic, multivitamin one tab p.o. daily, vitamin B12 500 mcg p.o. daily, Zestril 20 mg p.o. b.i.d., Zocor 5 mg p.o. at bedtime, DuoNeb 3 mL inhaled q.i.d., Lovenox right now, Lasix 40 mg IV b.i.d., and Levaquin. ALLERGIES: PENICILLIN. SOCIAL HISTORY: He continues to smoke although states he is trying to quit. He has been using a patch. He has never quit in the past. He does have a history of alcoholism. He lives with his spouse and has two sons and one ADMIT: 03/01/2017 RM/LOC: 407 [facility] MR#: [id number] [facility] [address] [address] IVONNE SORENSEN [facility] [place] [place] [address] Consultation SEX: M AGE: 71 : 1945 daughter. He is retired. FAMILY HISTORY: Positive for cancer, diabetes, and coronary artery disease along with stroke. PHYSICAL EXAMINATION: VITAL SIGNS: Per Dr. López, temp 97.7, pulse 112, respirations 17, blood pressure 134/72, and O2 saturation 97% on room air. SKIN: Crosswicks, warm and dry. EYES: Sclerae clear. No xanthelasmas. ENT: Oral mucosa is pink and moist. No jugular venous distention or carotid bruits. CHEST: Inspiratory and expiratory wheezes. HEART: Regular rate and rhythm. Normal S1, S2. No murmurs, rubs or gallops. ABDOMEN: Soft and nontender. MUSCULOSKELETAL: Gait is normal. EXTREMITIES: Peripheral pulses palpable. No clubbing, cyanosis or edema. PSYCHIATRIC: Alert and oriented. Mood and affect are appropriate. DIAGNOSTIC DATA: Echocardiogram done this morning shows an EF of 45%. Mild segmental wall motion abnormalities. [id number] left ventricular hypertrophy. No significant valvular abnormalities. Chest x-ray from this morning shows probable chronic interstitial thickening unchanged. Blood cultures are no growth to date. Sodium of 135, potassium 4.1, chloride 99, carbon dioxide 27, BUN of 14, glucose 132, creatinine 1.0, calcium 9.0, and GFR 74. White blood count of 3.4 with red blood count of 4.39, hemoglobin of 14.3, hematocrit 42.6, with a platelet count of 193. Cardiac enzymes have been negative x3 sets. Procalcitonin was less than 0.05. Lactic acid was 0.9. ProBNP was 5901. ASSESSMENT: Per Dr. López: 1. Acute exacerbation of chronic obstructive pulmonary disease. 2. Chronic systolic heart failure. 3. Smoker. 4. Nonischemic cardiomyopathy. ADMIT: 03/01/2017 RM/LOC: 407 [facility] MR#: [id number] [address] [address] IVONNE SORENSEN [address] [place] [address] Consultation SEX: M AGE: 71 : 1945 5. Hypertension. 6. Hyperlipidemia. PLAN: Per Dr. López, his weight is actually down when compared to his last hospital stay. His chest x-ray shows no signs of CHF this morning. His BNP is unchanged from baseline. I am okay with some lower dose Lasix, but would be gentle as I do not feel that he has a large amount of fluid on board. I agree with rechecking his echocardiogram. He is a smoker and states that he quit yesterday. I encouraged him to continue with this. We will continue to monitor symptoms and diagnostics amend our plan accordingly. Thank you for allowing us to participate in care of this patient. VON Cano / Andrea López MD / shavon JOB #: [id number] CC: Jamal Ennis, Attending Physician Jamal Ennis, Family Physician
[2017-03-07] MEDS ORDERED: VITAMIN B-121000 MCG PO (19:38)
[2017-03-07] MEDS ORDERED: DELTASONE DPS1 MG (19:39)
[2017-03-07] MEDS ORDERED: BREO ELLIPTA 21 EACH IH (19:40)
[2017-03-07] MEDS ORDERED: LEVAQUIN DPS750 MG PO (19:40)
[2017-03-07] MEDS ORDERED: PROAIR HFA8.5 GM IH (19:41)
--- NOTE | 2017-03-08 01:20 | ER ---
ADMIT: 03/01/2017 RM/LOC: ER [facility] MR#: [id number] [address] [address] IVONNE SORENSEN [address] [place] [address] Emergency Room Report SEX: M AGE: 71 : 1945 DATE: 03/01/2017 CHIEF COMPLAINT: Cough and shortness of breath. HISTORY OF PRESENT ILLNESS: This is a 71-year-old male, who has been hospitalized a couple of times within the last couple months for pneumonia. He said he never feels like he felt like he really recovered over the last few days. He just had more of a cough, more shortness of breath, worse on exertion. He still continues to smoke every day. COURSE IN THE EMERGENCY ROOM: Lactic acid was normal at 0.1. Procalcitonin is 0.05. CMP is normal except for GFR slightly low at 84. His proBNP is 5901. Cardiac enzymes are normal. His relative index is just slightly elevated at 4.2. CBC; his white count is 5.5, hemoglobin 13.4, platelets 167. EKG was over-read by Dr. Emmanuel as sinus rhythm at a rate of 78. He does have some flipped T-waves in V3 through V6. CLINICAL IMPRESSION: 1. Congestive heart failure exacerbation. 2. Chronic obstructive pulmonary disease exacerbation. 3. Tobacco abuse. DISPOSITION: I did call Dr. Lam again. He is admitting. This was done at 1630 hours. Decadron, Levaquin, and Lasix have been given down here in the emergency room along with a DuoNeb and again, he will be admitted to the floor. VON Navarrete / Corey Alfonso MD / shavon JOB #: [id number] CC: Sekou Emmanuel MD, Attending Physician Jamal Ennis MD, Family Physician
--- NOTE | 2017-03-16 21:43 | DS ---
ADMIT: 03/01/2017 RM/LOC: 619 [facility] MR#: [id number] [facility]#: [id number] [address] [address] IVONNE SORENSEN [address] [place] [address] General Discharge Summary SEX: M AGE: 71 : 1945 ADMISSION DATE: 03/01/2017 DISCHARGE DATE: 03/05/2017 FINAL DIAGNOSES: 1. Recurrent exacerbation, chronic obstructive pulmonary disease. 2. Systolic congestive heart failure - ejection fraction 45%. 3. Sleep apnea - on CPAP. 4. Ongoing tobacco abuse. 5. Systemic hypertension. 6. Chronic depression. 7. Chronic pain syndrome - narcotic dependent. 8. Hyperlipidemia. 9. Prior history of alcohol abuse. 10.Status post back fusion, L4-S1. 11.Status post nephrectomy for renal cell cancer. 12.Status post esophagectomy for esophageal cancer. 13.Status post appendectomy and hernia repair. BRIEF HISTORY: This 71-year-old male was hospitalized at [place] on February 03 with cough, congestion, wheezing, and shortness of breath. He was in the hospital for 4-5 days. After he went home, he stated "he just felt again improved much" and continued to cough, had congestion, and shortness of breath. Over the last 3-4 days, it gotten worse when he is coughing up white sputum. He admitted to occasional chest pressure. His symptoms were severe enough, finally he presented to the emergency room where he was evaluated. He was started on IV Levaquin, steroids, and IV Lasix in the emergency room and then admitted. SIGNIFICANT LAB AND X-RAY: On admission; CBC showed a hemoglobin of 13.4 with slightly microcytic indices. White count 5500 and platelets of 167,000. Repeat CBC the following day was essentially unchanged, but white count of 3400. On admission, CMP was normal but for a calcium of 8.3 mg/dL and albumin of 3.3 g/dL (normal 3.5 to 5.0). On admission, proBNP was 5901 pg/mL. Cardiac enzymes were evaluated on admission and were within normal limits. Serial chemistries were followed and by 03/04 his proBNP was 4122 pg/mL. BMP was normal but for sodium of 131 mmol/L. Blood cultures obtained x2 on admission had no growth after 5 days incubation. Chest x-ray on admission was read as "the lungs are less well aerated with interstitial markings more prominent. Findings suggest probable interstitial edema. There is underlying fibrotic change." Serial chest x-rays were followed and by 03/03 it was read as "improving aeration lung iyer, chronic ADMIT: 03/01/2017 RM/LOC: 619 [facility] MR#: [id number] [address] [address] IVONNE SORENSEN [facility] [place] [address] General Discharge Summary SEX: M AGE: 71 : 1945 interstitial thickening." On 03/02 echocardiogram was read as "estimated left ventricular ejection fraction of 45%, mild segmental wall motion abnormalities noted, mild-to- moderate left ventricular hypertrophy, left atrium is severely dilated. No significant valvular abnormalities." EKG on admission was read as "sinus rhythm with PVCs and borderline first- degree AV block. Anterolateral ST-T abnormality may be due to myocardial ischemia. Compared to 02/03/2017, increased ST-T changes." Serial EKGs were followed and showed no significant change." On 03/03, pulmonary function studies were read as "mild obstruction without restriction or reversibility." HOSPITAL COURSE: The patient was admitted through the emergency room and the imaging and laboratory studies outlined above were begun. He was placed on telemetry with routine telemetry orders. Given DuoNeb q.i.d. and q.4 hours p.r.n., started on Solu-Medrol 60 mg IV q.8 hours, IV Levaquin 500 mg daily, O2 to keep sats greater than 90%. Lasix 40 mg IV b.i.d. was initiated. He was placed on Lovenox 40 mg subcu for deep vein thrombosis prophylaxis. Cardiology consultation was requested and they were kind enough to see him. Adjustments were made upward in his Percocet dose. He was seen by the dietitian, occupational therapy, and physical therapy. He was started on nicotine replacement with patches. By 03/03 (day 2) he was afebrile. He was "feeling better." He has scattered rhonchi and a few expiratory wheezes. Solu-Medrol was decreased to 60 mg q.12 hours. He was changed to oral Levaquin 500 mg daily. Pulmonary consult was requested and they were kind enough to see him. They ordered PFTs, Breo Ellipta 200/25, one inhalation daily was initiated as was Spiriva 18 mcg capsule inhaled daily. Overnight oximetry was done on room air which was actually fairly stable. By 03/04 (day 3), he was feeling significantly better. His chest was essentially clear. His IV Solu-Medrol and Lasix were discontinued. He was placed on prednisone 10 mg q.i.d. and Lasix 40 mg b.i.d. It was felt he was then euvolemic. On 03/05, he was ready to go home. Arrangements were made for followup with Pulmonary in 3 weeks. Arrangements were made to be seen in my office in approximately a week in followup. He will be followed by the [facility] as well. On dismissal, his medications included: 1. Aspirin 81 mg daily. 2. Coreg 12.5 mg b.i.d. 3. Deltasone 10 mg q.i.d. (with a taper). 4. Trazodone 200 mg at bedtime. 5. Effexor 75 mg two daily. ADMIT: 03/01/2017 RM/LOC: 619 [facility] MR#: [id number] [address] [place] [address] [place] [address] IVONNE SORENSEN [address] [place] [address] General Discharge Summary SEX: M AGE: 71 : 1945 6. Lasix 40 mg daily. 7. Levaquin 500 mg daily (x4 days). 8. Neurontin 600 mg b.i.d. 9. Protonix 40 mg b.i.d. 10.Soma 350 mg q.6 hours. 11.Multivitamin one daily. 12.Vitamin B12 at 500 mcg daily. 13.Zestril 20 mg b.i.d. 14.Zocor 5 mg at bedtime. 15.Breo Ellipta 200/25, one inhalation daily. 16.Spiriva 18 mcg 1 inhalation daily. 17.P.r.n. orders for Colace, Maalox, Percocet, and Zofran. He was encouraged to continue his nicotine patch use. He was also allowed ProAir 2 puffs q.2 hours p.r.n. CONDITION ON DISCHARGE: Stable on above treatment. FINAL DISPOSITION: As noted. PROGNOSIS: Guarded. Jamal Ennis MD/ shavon JOB #: [id number] CC: Jamal Ennis MD, Attending Physician Jamal Ennis MD, Family Physician
[2017-05-18] MEDS ORDERED: PROTONIX40 MG PO (16:10)
[2017-05-18] MEDS ORDERED: ZESTRIL20 MG PO (16:10)
[2017-05-18] MEDS ORDERED: ASA CHILDREN'S81 MG PO (16:10)
[2017-05-18] MEDS ORDERED: CENTRUM SILVER1 EAC1 PO (16:10)
[2017-05-18] MEDS ORDERED: ZOCOR DPS10 MG PO (16:10)
[2017-05-18] MEDS ORDERED: DESYREL DPS100 MG PO (16:11)
[2017-05-18] MEDS ORDERED: EFFEXOR XR150 MG PO (16:11)
[2017-05-18] MEDS ORDERED: CARVEDILOL25 MG PO (16:11)
[2017-05-18] MEDS ORDERED: NEURONTIN DPS600 MG PO (16:12)
[2017-05-18] MEDS ORDERED: SOMA350 MG PO (16:12)
[2017-05-18] MEDS ORDERED: PERCOCET 10-321 EACH PO (16:12)
[2017-05-18] MEDS ORDERED: ZOFRAN DPS8 MG PO (16:14)
[2017-05-18] MEDS ORDERED: LASIX DPS40 MG PO (16:34)
[2017-05-18] MEDS ORDERED: MEN'S MULTI-VI1 EACH PO (16:36)
[2017-05-18] MEDS ORDERED: VITAMIN D1000 UNI1 PO (16:36)
[2017-05-18] MEDS ORDERED: IRON325 M1 PO (16:36)
[2017-05-18] MEDS ORDERED: MUCINEX600 MG PO (16:36)
[2017-05-18] MEDS ORDERED: PULMICORT0.25 MG/1 IH (16:37)
[2017-05-18] MEDS ORDERED: IPRATROPIU0.2 MG/1 M IH (16:38)
[2017-05-18] MEDS ORDERED: ALBUTEROL0.63 MG/3 IH (16:38)
[2017-05-18] MEDS ORDERED: NICOTINE PATCH1 EAC1 TD (16:39)
[2017-05-18] MEDS ORDERED: MAALOX DPS30 ML PO (16:40)
[2017-05-18] MEDS ORDERED: SPIRIVA18 MCG IH (16:40)
[2017-05-18] MEDS ORDERED: TYLENOL DPS325 MG PO (16:40)
[2017-05-18] MEDS ORDERED: COLACE-DPS100 MG PO (16:40)
[2017-05-18] MEDS ORDERED: NITROSTAT0.4 MG SL (16:40)
[2017-05-26] MEDS ORDERED: PROVENTIL2.5 MG/3 M IH (13:55)
[2017-05-26] MEDS ORDERED: DUONEB DPS3 ML IH (13:55)
[2017-05-26] MEDS ORDERED: FLOMAX DPS0.4 MG PO (13:56)
[2017-05-26] MEDS ORDERED: STIOLTO RESPIMAT4 GM IH (13:56)
[2017-05-26] MEDS ORDERED: KLOR-CON M2020 ME1 PO (13:57)
[2017-05-26] MEDS ORDERED: BIAXIN500 MG PO (13:57)
[2017-05-26] MEDS ORDERED: PERCOCET 10-321 EACH PO (13:57)
[2017-05-26] MEDS ORDERED: PHENERGAN DPS25 MG PO (13:57)
== END 2017-03-05 11:55 | disposition home or self-care (01) | DRG 191 ==
LOC: ER 13:19 → 6PED 16:40 → 4PCU 16:40 → 6PED 03-02 17:47
PROVIDERS: ADMIT Family Medicine
DX: J44.1 Chronic obstructive pulmonary disease with (acute) exacerbation (principal); I50.22 Chronic systolic (congestive) heart failure; I11.0 Hypertensive heart disease with heart failure; I42.9 Cardiomyopathy, unspecified; F17.210 Nicotine dependence, cigarettes, uncomplicated; F32.9 Major depressive disorder, single episode, unspecified; G89.4 Chronic pain syndrome; I25.10 Atherosclerotic heart disease of native coronary artery without angina pectoris; G47.33 Obstructive sleep apnea (adult) (pediatric); M19.90 Unspecified osteoarthritis, unspecified site; K21.9 Gastro-esophageal reflux disease without esophagitis; E11.9 Type 2 diabetes mellitus without complications; I71.4 Abdominal aortic aneurysm, without rupture; E78.5 Hyperlipidemia, unspecified; F10.21 Alcohol dependence, in remission; Z98.1 Arthrodesis status; Z90.5 Acquired absence of kidney; Z85.528 Personal history of other malignant neoplasm of kidney; Z85.01 Personal history of malignant neoplasm of esophagus; Z79.82 Long term (current) use of aspirin; Z86.14 Personal history of Methicillin resistant Staphylococcus aureus infection; Z82.49 Family history of ischemic heart disease and other diseases of the circulatory system

== ENCOUNTER 2017-04-03 15:35 | Inpatient (IN) | payer MEDICARE ==
[~2017-04-03] VITALS: Ht 177.8 cm; Wt 87.0 kg
[~2017-04-03 15:35] MED LIST changes: +BREO ELLIPTA 21 EACH IH; +DELTASONE DPS1 MG; +PROAIR HFA8.5 GM IH; +VITAMIN B-121000 MCG PO
--- NOTE | 2017-04-10 18:57 | ER ---
ADMIT: 04/03/2017 RM/LOC: 411 [facility] MR#: [id number] [id number] [place], [place] [address] IVONNE SORENSEN [address] [place] [address] Emergency Room Report SEX: M AGE: 71 : 1945 DATE: 04/03/2017 ADDENDUM: CHIEF COMPLAINT: Shortness of breath. HISTORY OF PRESENT ILLNESS: This is a 71-year-old, who developed shortness of breath increasing over the last 2 days. He does have a history of CHF and COPD. PAST MEDICAL HISTORY: Again COPD, CHF, esophageal cancer, kidney cancer, and has a right nephrectomy. MEDICATIONS: Please see nurse's note. ALLERGIES: PENICILLIN. SOCIAL HISTORY: Denies any drug or alcohol use, but does smoke tobacco. FAMILY HISTORY: Noncontributory. REVIEW OF SYSTEMS: CONSTITUTIONAL: Denies any fevers, chills, or sweats. CARDIOVASCULAR/RESPIRATORY: He does have some shortness of breath, but no chest pain. No cough. GI/: Denies any nausea, vomiting, or diarrhea. All systems otherwise negative. PHYSICAL EXAMINATION: VITAL SIGNS: Blood pressure is 159/89, pulse is 74, respirations 19, temperature is 97.4 tympanic, and saturation of oxygen is 94% on room air. GENERAL APPEARANCE: The patient is in mild distress, but alert. HEENT: Pharynx is moist. No tonsillar swelling or exudate. TMs are non- erythemic bilateral. HEART: Regular rate and rhythm. LUNGS: Decreased bilateral with some wheezing and rhonchi. ABDOMEN: Soft, nontender to palpation. MUSCULOSKELETAL: He has no pedal edema bilateral. Normal range of motion with all extremities. ADMIT: 04/03/2017 RM/LOC: 411 [facility] MR#: [id number] [address] [address] IVONNE SORENSEN [address] [place] [address] Emergency Room Report SEX: M AGE: 71 : 1945 NEURO AND PSYCH: He is alert and oriented x3. Mood and affect normal. COURSE IN THE EMERGENCY ROOM: CBC, CMP, troponin, CK, CK-MB, BNP, chest x- ray, EKG, and a DuoNeb was given along with Lasix 40 mg IV. Chest x-ray showed no acute findings. CBC is normal except for hemoglobin of 12.9, hematocrit 37.9. Chemistries were normal except for sodium of 134. His cardiac enzymes [place]. [place] [address]. Lactic acid is 0.7. While here in the emergency room, he has become slightly hypoxic dipping into 87-88 on room air. I did speak with Dr. Huang regarding this patient. We are going to admit for CHF exacerbation. DISPOSITION: He is stable at admit. VON Navarrete / Jeremy White MD / modl JOB #: [id number] CC: Jamal Ennis MD, Attending Physician Jamal Ennis MD, Family Physician
--- NOTE | 2017-04-16 07:46 | DS ---
ADMIT: 04/03/2017 RM/LOC: 411 [facility] MR#: [id number] [address] [address] IVONNE SORENSEN [address] [place] [address] General Discharge Summary SEX: M AGE: 71 : 1945 ADMISSION DATE: 04/03/2017 DISCHARGE DATE: 04/06/2017 FINAL DIAGNOSES: 1. Acute on chronic congestive heart failure. 2. Chronic obstructive pulmonary disease exacerbation. 3. Nicotine dependence and abuse. 4. Hypertension. 5. Depression. 6. Hyperlipidemia. 7. Sleep apnea. 8. Obesity. HISTORY OF PRESENT ILLNESS: The patient presented with shortness of breath, hypoxia, found to be hypoxic in the ER. The patient has been hospitalized multiple times for this same symptoms. No pneumonia was seen specifically on the chest x-ray, but the patient did have some wheezing and crackles bilaterally. HOSPITAL COURSE: The patient was admitted to inpatient. The patient was started on IV Lasix to help manage his congestive heart failure. The patient was also started on IV steroids and IV antibiotics for the acute COPD exacerbation. The patient improved with oxygen, steroids, and antibiotics. The patient continued to do well; however, he does meet criteria for home O2 at night and day #3, the patient was discharged home in stable condition with p.o. prednisone taper as well as an antibiotic. MEDICATIONS: At the time of discharge include: 1. Baby aspirin. 2. Coreg 12.5 mg b.i.d. 3. A steroid taper. 4. Desyrel 200 mg at night. 5. Effexor 150 mg daily. 6. Lasix 40 mg daily. 7. Neurontin 600 mg b.i.d. 8. Protonix 40 mg b.i.d. 9. Multivitamin. 10.Zestril 20 mg b.i.d. 11.Zocor 5 mg at night. ADMIT: 04/03/2017 RM/LOC: 411 [facility] MR#: [id number] [address] [address] IVONNE SORENSEN [address] [place] [address] General Discharge Summary SEX: M AGE: 71 : 1945 12.Spiriva daily. 13.Percocet. 14.Soma 350 mg q.6 hours as needed. 15.Zofran 8 mg q.8 hours as needed. 16.Proventil as needed every 2 hours. Again, he was sent out on: 1. Levaquin 750 mg daily for 5 days. The patient to have a followup appointment with Dr. Ennis on Thursday, 04/08 at 1:50 p.m. The patient is to bring all his medications at that time. The patient was also discharged home on home oxygen for evening use. CODE STATUS: Full. Keisha Ray MD Resident / Jamal Ennis MD / brennanl JOB #: [id number] CC: Jamal Ennis MD, Attending Physician Jamal Ennis MD, Family Physician
--- NOTE | 2017-04-21 06:55 | HP ---
ADMIT: 04/03/2017 RM/LOC: 411 [facility] MR#: [id number] [address] [address] IVONNE SORENSNE [address] [place] [address] History and Physical SEX: M AGE: 71 : 1945 DATE OF SERVICE: CHIEF COMPLAINT: Shortness of breath, hypoxia, and congestive heart failure, acute exacerbation. HISTORY OF PRESENT ILLNESS: The patient is a 71-year-old male, who actually just recently hospitalized towards the end of February, around March 01. For similar complaints, he had also been admitted in January twice for same complaint as well. The patient states that he has been feeling more fatigued over the last three days, start becoming more shortness of breath and just not feeling very well. The patient denies any chest pain or palpitations. He denies any notice of swelling in his lower extremities, but generally just did not feel very well and just felt like he could not catch his breath. When he arrived to the ER, the patient's O2 sats were initially 94%. Remained in the upper 80s, low 90s, but did improve with 2 L of O2. He states he has been coughing up sputum mostly white in color. Has not seen a blood running green- yellow tinged. Again, this is normal for him, he could cough up sputum, but does feel this has increased since his normal baseline. The patient had lab workup and imaging done. Chest x-ray did not show any acute cardiopulmonary process at that time. His white blood cell count was normal. Hemoglobin is slightly low at 12.9, platelets were normal. His lactic acid was normal at 0.7. Electrolytes were also fairly within normal range with a sodium 134, potassium 4, chloride 101, CO2 of 23, BUN was 10, creatinine was normal at 0.8, glucose is normal at 97, and his calcium is 8.7. CK-MB and troponin were all normal. [place] [address]. The patient's normal BNP sits in the 3 to 5000 range as far as looking back at old results. Due to the patient's shortness of breath and hypoxia, ER felt like he was not stable enough to go home. He did again improved with the O2 supplementation and as well as starting him on IV Lasix. He denies any real nausea, vomiting, or diarrhea. Has not had any abdominal pain. Does feel like he maybe had a fever at least been experiencing some chills, but again mentions that he is just very short of breath and feels very fatigued. He has not had any numbness or tingling or stroke or seizure-like activity as well. PAST MEDICAL HISTORY: He does have a very significant past medical history with very severe COPD and congestive heart failure. He also has hypertension, depression, hyperlipidemia, obstructive sleep apnea, and obesity. Also is nicotine dependent and nicotine abuse. 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 The patient does mention he was on Lasix as an outpatient since his last hospitalization, but he ran out this week. He is not really sure if he was suppose to renew that or if it was just a short period of time he chose to be on the Lasix. ALLERGIES: INCLUDE SULFA AND PENICILLINS. SURGERIES: Include; nephrectomy for renal cell cancer, history of esophageal cancer, he has had fusion of L4-S1 joint space disease, appendectomy, and hernia repair. ADMIT: 04/03/2017 RM/LOC: 411 [facility] MR#: [id number] [address] [place] [id number] IVONNE SORENSEN [address] [place] [address] History and Physical SEX: M AGE: 71 : 1945 SOCIAL HISTORY: He is a current every day smoker. He states he may be interested in trying the E-cigs to help him quit, but admits to continued smoking even though he has this severe COPD. He is on chronic pain meds due to back pain and he does live with his at home. FAMILY HISTORY: Significant for stroke type hypertension, lung cancer, heart disease, and depression. REVIEW OF SYSTEMS: A 10-point review of systems was done and was negative otherwise as mentioned in the HPI. MEDICATIONS: Include; 1. Aspirin 81 mg daily. 2. Simvastatin 5 mg at bedtime. 3. Pantoprazole 40 mg twice a day. 4. Lisinopril 20 mg twice a day. 5. Multivitamin. 6. He is on Effexor 150 mg every day. 7. Trazodone 200 mg at bedtime. 8. Coreg 12.5 twice a day. 9. Percocet two tablets of 10/325 every 4-6 hours as needed. 10.Soma 350 mg every 6 hours. 11.Gabapentin 600 mg twice a day. 12.Zofran 8 mg every 8 hours as needed. 13.Breo 200/25 one puff every morning. 14.Spiriva 18 mcg every day. 15.ProAir 2 puffs every 2 hours as needed. 16.The patient was taking 40 mg of p.o. Lasix at home until he ran out this week. PHYSICAL EXAMINATION: VITAL SIGNS: Temperature is 96.9, respirations of 18, blood pressure 132/100, pulse is 90, and SpO2 at this point in time was 95% on 2 L. GENERAL: No acute distress. He is alert and oriented x3. Does appear to be having a little bit increased work of breathing, but overall calm and in no apparent distress. HEENT: Normocephalic and atraumatic. Moist mucous membranes. Extraocular muscles are intact. HEART: Regular rate and rhythm. No murmurs are appreciated at this time. LUNGS: He does have bilateral wheezing specifically expiratory. Does have some small rhonchi as well bilaterally. ABDOMEN: Soft, nontender. EXTREMITIES: Showed maybe a little bit of trace edema, but otherwise was normal. ASSESSMENT AND PLAN: This is a 71-year-old male with significant past medical history of congestive heart failure, chronic obstructive pulmonary disease, hypertension, hyperlipidemia, and depression, who has recently been having ADMIT: 04/03/2017 RM/LOC: 411 [facility] MR#: [id number] [address] [address] IVONNE SORENSEN [address] [place] [address] History and Physical SEX: M AGE: 71 : 1945 recurrent hospitalizations for congestive heart failure and chronic obstructive pulmonary disease. We will admit the patient. We will treat both his chronic obstructive pulmonary disease exacerbation and his congestive heart failure exacerbation. We will continue to control his hypertension and depression with his home medications as well. We will start the patient on IV Solu-Medrol, IV Levaquin, and we will schedule DuoNebs q.4 hours as well as q.2 hours p.r.n. I will get CBC and BMP in the morning and repeat a chest x- ray in the morning as well. Hopefully, the patient will respond well to the IV Lasix and his breathing treatments and hopefully this will be a fairly short stay. Ultimately, we really need to focus on long-term goals, specifically the patient may be a candidate for O2 at home even if he is just using while exerting himself. I stressed the importance of quitting smoking stating that his lungs already very severely damaged and we may not get much improvement out of his lungs, but if he would quit smoking further, we would prevent any further damage and hopefully will diminish his frequent hospitalizations. The patient is otherwise stable. We will admit the patient to 4th floor tele. We will continue to monitor. Keisha Ray MD Resident / Francisco Huang MD / brennanl JOB #: [id number] CC: Jamal Ennis, Attending Physician Jamal Ennis, Family Physician
[2017-05-18] MEDS ORDERED: ZOCOR DPS10 MG PO (16:10)
[2017-05-18] MEDS ORDERED: CENTRUM SILVER1 EAC1 PO (16:10)
[2017-05-18] MEDS ORDERED: PROTONIX40 MG PO (16:10)
[2017-05-18] MEDS ORDERED: ZESTRIL20 MG PO (16:10)
[2017-05-18] MEDS ORDERED: ASA CHILDREN'S81 MG PO (16:10)
[2017-05-18] MEDS ORDERED: EFFEXOR XR150 MG PO (16:11)
[2017-05-18] MEDS ORDERED: DESYREL DPS100 MG PO (16:11)
[2017-05-18] MEDS ORDERED: CARVEDILOL25 MG PO (16:11)
[2017-05-18] MEDS ORDERED: PERCOCET 10-321 EACH PO (16:12)
[2017-05-18] MEDS ORDERED: NEURONTIN DPS600 MG PO (16:12)
[2017-05-18] MEDS ORDERED: SOMA350 MG PO (16:12)
[2017-05-18] MEDS ORDERED: ZOFRAN DPS8 MG PO (16:14)
[2017-05-18] MEDS ORDERED: LASIX DPS40 MG PO (16:34)
[2017-05-18] MEDS ORDERED: IRON325 M1 PO (16:36)
[2017-05-18] MEDS ORDERED: MEN'S MULTI-VI1 EACH PO (16:36)
[2017-05-18] MEDS ORDERED: MUCINEX600 MG PO (16:36)
[2017-05-18] MEDS ORDERED: VITAMIN D1000 UNI1 PO (16:36)
[2017-05-18] MEDS ORDERED: PULMICORT0.25 MG/1 IH (16:37)
[2017-05-18] MEDS ORDERED: ALBUTEROL0.63 MG/3 IH (16:38)
[2017-05-18] MEDS ORDERED: IPRATROPIU0.2 MG/1 M IH (16:38)
[2017-05-18] MEDS ORDERED: NICOTINE PATCH1 EAC1 TD (16:39)
[2017-05-18] MEDS ORDERED: NITROSTAT0.4 MG SL (16:40)
[2017-05-18] MEDS ORDERED: SPIRIVA18 MCG IH (16:40)
[2017-05-18] MEDS ORDERED: MAALOX DPS30 ML PO (16:40)
[2017-05-18] MEDS ORDERED: TYLENOL DPS325 MG PO (16:40)
[2017-05-18] MEDS ORDERED: COLACE-DPS100 MG PO (16:40)
[2017-05-26] MEDS ORDERED: DUONEB DPS3 ML IH (13:55)
[2017-05-26] MEDS ORDERED: PROVENTIL2.5 MG/3 M IH (13:55)
[2017-05-26] MEDS ORDERED: FLOMAX DPS0.4 MG PO (13:56)
[2017-05-26] MEDS ORDERED: STIOLTO RESPIMAT4 GM IH (13:56)
[2017-05-26] MEDS ORDERED: PERCOCET 10-321 EACH PO (13:57)
[2017-05-26] MEDS ORDERED: KLOR-CON M2020 ME1 PO (13:57)
[2017-05-26] MEDS ORDERED: PHENERGAN DPS25 MG PO (13:57)
[2017-05-26] MEDS ORDERED: BIAXIN500 MG PO (13:57)
== END 2017-04-06 10:30 | disposition home or self-care (01) | DRG 190 ==
LOC: ER 15:35 → 4PCU 18:00
PROVIDERS: ADMIT Family Medicine
DX: J44.1 Chronic obstructive pulmonary disease with (acute) exacerbation (principal); I50.23 Acute on chronic systolic (congestive) heart failure; I11.0 Hypertensive heart disease with heart failure; R09.02 Hypoxemia; F17.200 Nicotine dependence, unspecified, uncomplicated; F32.9 Major depressive disorder, single episode, unspecified; E78.5 Hyperlipidemia, unspecified; G47.33 Obstructive sleep apnea (adult) (pediatric); Z90.5 Acquired absence of kidney; Z85.01 Personal history of malignant neoplasm of esophagus; Z85.528 Personal history of other malignant neoplasm of kidney; Z98.1 Arthrodesis status; Z79.82 Long term (current) use of aspirin; T50.1X6A Underdosing of loop [high-ceiling] diuretics, initial encounter; Z91.128 Patient's intentional underdosing of medication regimen for other reason

== ENCOUNTER 2017-05-31 11:41 | Inpatient (IN) | payer MEDICARE ==
[~2017-05-31] VITALS: Ht 177.8 cm; Wt 83.7 kg
[~2017-05-31 11:41] MED LIST changes: +ALBUTEROL0.63 MG/3 IH; +ASA CHILDREN'S81 MG PO; +BIAXIN500 MG PO; +CARVEDILOL25 MG PO; +CENTRUM SILVER1 EAC1 PO; +COLACE-DPS100 MG PO; +DESYREL DPS100 MG PO; +EFFEXOR XR150 MG PO; +FLOMAX DPS0.4 MG PO; +IPRATROPIU0.2 MG/1 M IH; +IRON325 M1 PO; +KLOR-CON M2020 ME1 PO; +LASIX DPS40 MG PO; +MEN'S MULTI-VI1 EACH PO; +NEURONTIN DPS600 MG PO; +NICOTINE PATCH1 EAC1 TD; +NITROSTAT0.4 MG SL; +PERCOCET 10-321 EACH PO; +PHENERGAN DPS25 MG PO; +PROTONIX40 MG PO; +PULMICORT0.25 MG/1 IH; +SOMA350 MG PO; +SPIRIVA18 MCG IH; +STIOLTO RESPIMAT4 GM IH; +VITAMIN D1000 UNI1 PO; +ZESTRIL20 MG PO; +ZOCOR DPS10 MG PO; +ZOFRAN DPS8 MG PO
--- NOTE | 2017-06-01 14:27 | HP ---
ADMIT: 05/31/2017 RM/LOC: 312 [facility] MR#: [id number] [address] IVONNE TORRES [address] [place] [address] History and Physical SEX: M AGE: 71 : 1945 DATE OF SERVICE: CHIEF COMPLAINT: Altered mental status with decreased level of consciousness. CLINICAL HISTORY: Mr. Torres is a chronically ill 71-year-old white male, admitted to the ICU after being brought to the ER by ambulance. The patient was transported from his home by ambulance after an unresponsive episode with decreased level of consciousness on the morning of 05/31/2017. The patient has had a similar transient episode of confusion, lethargy, and unresponsiveness on 05/28/2017 and was seen in the ER then. It is noted that he has had numerous hospitalizations over the last several months. He has been hospitalized 5 times in the last 4 months. Most recently, being hospitalized on 05/19/2017 through 05/25/2017 with pneumonia and COPD exacerbation. He has also been in the hospital from 05/15/2017 through 05/17/2017, from 04/03/2017 through 04/06/2017. In February, he was in the hospital from 03/01/2017 through 03/05/2017, and in January, he was admitted on 02/03/2017 and dismissed on 02/06/2017. Numerous hospitalizations related to his COPD, chronic pain, and overuse of his pain medications as well as ongoing difficulty with chronic congestive heart failure. He has a history of severe COPD with chronic respiratory failure. Despite his COPD and need for supplemental O2, he continues to smoke. He has difficulty with chronic pain and iatrogenic opioid dependence, taking high-dose oxycodone. His found him this morning, slumped over, sitting on the toilet. He apparently had gone to the bathroom and then he passed out while he was on the toilet. She then had difficulty arousing him, and for that reason, she summoned the ambulance. When the ambulance was arrived, they did give him Narcan, which seemed to help wake him up briefly, but he then nodded off and was difficult to arouse while he was transported to the ER. He was evaluated in the ER by Dr. Emmanuel, who is very familiar with him because of his frequent ER visits. Dr. Emmanuel noted that he was not his usual self. He was cognitively impaired and had difficulty staying awake, difficulty answering questions. For that reason, a CT of the head was obtained. PET CT done in the ER today shows at least 2 or 3 new cerebellar lesions, which look like possible hemorrhage around possible metastases. He has no history of cerebral metastases. It is noted that he had just had a head CT in the ER on 05/19/2017, and these lesions in the cerebellum were not noted at that time. Dr. Ralph was consulted while the patient was in the ER. He agreed with what the radiologist was suggesting that these were most likely metastases with possible hemorrhage around them or focal areas of hemorrhage in the cerebellum. In view of these intracerebellar hemorrhagic lesions, it was felt best to admit to the ICU for close monitoring of his neurologic status and level of consciousness. Do note, it he was just dismissed from the hospital 6 days ago. Had been hospitalized with pneumonia, COPD, and congestive heart failure. The patient did have exacerbation of his chronic congestive failure during that hospitalization, but respiratory status over the last several days has been stable. He does have chronic cough, chronic dyspnea on exertion, very poor activity tolerance because of his dyspnea but notes that his respiratory status has been stable since his discharge 6 days ago. He is admitted at this time for close neurologic monitoring. There continues to be some question as to whether or not his ADMIT: 05/31/2017 RM/LOC: 312 [facility] MR#: [id number] [address] [address] IVONNE TORRES [address] [place] [address] History and Physical SEX: M AGE: 71 : 1945 obtunded neurologic status is related to these new hemorrhagic cerebellar lesions or simply related to overuse of his narcotic pain medication. It is noted on the morning of admission he had been his usual self from a mental status point, but after he took his morning medications and was in the bathroom when he had this period of unresponsiveness suggesting that possibly it was related to his high-dose opioids and use of his muscle relaxant. PAST MEDICAL HISTORY: As noted, numerous hospitalizations over the last 4 months. This is his 6th time in the hospital in the last 4 months with previous admissions on 05/19/2017, 05/15/2017, 04/03/2017, 03/01/2017, and 02/03/2017 as well as numerous ER visits during that period of time as well. His chronic medical problems include. 1. Severe COPD. O2 dependent with ongoing tobacco abuse. 2. Chronic respiratory failure with hypoxia. 3. Type 2 diabetes. 4. Hypertension. 5. Hyperlipidemia. 6. Alcohol use disorder, in remission. 7. Generalized osteoarthritis. 8. Depressive disorder, NOS. 9. History of renal cell carcinoma, status post right nephrectomy. Clinically, no evidence of disease. 10.History of esophageal cancer, status post distal esophagectomy with colon interposition. Clinically, no evidence of disease. 11.History of chronic GERD. 12.History of alcoholic pancreatitis. 13.Obstructive sleep apnea, utilizing CPAP. 14.Chronic back pain. 15.Degenerative disk disease, lumbosacral spine, status post previous back surgery x2. 16.Marked debility secondary to his pulmonary disease. PREVIOUS SURGICAL PROCEDURES: Include his right nephrectomy, history of a distal esophagectomy, appendectomy, hernia repair. He has also had 2 prior surgeries on his lower back including a 2-level fusion from L4-L5 and L5-S1. CURRENT MEDICATIONS: Current medications as of his dismissal from 05/25/2017 include: 1. Baby aspirin 81 mg daily. 2. Simvastatin 5 mg at bedtime. 3. Protonix 40 mg b.i.d. 4. Lisinopril 20 mg twice daily. 5. Effexor XR 150 mg daily. 6. Trazodone 100 mg at bedtime. 7. Coreg 12.5 mg b.i.d. 8. Percocet 10/325, two tablets every 4 hours for pain. 9. Soma 350 mg q.i.d. 10.Gabapentin 600 mg b.i.d. ADMIT: 05/31/2017 RM/LOC: 312 [facility] MR#: [id number] [id number] [address] IVONNE TORRES [address] [place] [address] History and Physical SEX: M AGE: 71 : 1945 11.Zofran 8 mg every 6 hours for nausea. 12.Mucinex 1200 mg b.i.d. 13.Ferrous sulfate 325 mg twice daily. 14.Lasix 40 mg b.i.d. 15.Vitamin D3 1000 mg daily. 16.Colace 100 mg twice daily p.r.n. constipation. 17.Maalox 30 mL every 6 hours p.r.n. indigestion. 18.Tylenol 650 mg every 4 hours as needed for minor discomfort. 19.Albuterol 2.5 mg per 3 mL via twin jet nebulizer q.4 hours p.r.n. 20.Nitrostat sublingual p.r.n. chest pain. 21.Pulmicort 0.25 mg per 2 mL via twin jet nebulizer twice daily. 22.Atrovent via twin jet nebulizer every 6 hours p.r.n. 23.DuoNeb via twin jet nebulizer every 4 hours p.r.n. 24.Stiolto 1 puff daily. 25.Flomax 0.4 mg daily. 26.Potassium 20 mEq b.i.d. 27.Biaxin 500 mg b.i.d. for 7 days. He had 1 day left of this antibiotic. 28.Nicotine 21 mg patch on in the a.m. and off at bedtime. 29.Phenergan 25 mg every 6 hours p.r.n. nausea. ALLERGIES: HE IS ALLERGIC TO PENICILLIN. SOCIAL HISTORY: The patient is retired. He lives in his family home with his . He continues to smoke. Smoking about a half pack a day. Does have past history of alcoholism, but no longer drinks. He has no history of illicit drug use. FAMILY HISTORY: Positive for cancer, diabetes, coronary artery disease, and stroke. REVIEW OF SYSTEMS: CONSTITUTIONAL: Difficult to obtain from the patient. Some of the history obtained from his . He has had no fever since discharge 6 days ago. His appetite had been improving. He has continued to be quite weak and not tolerated activity well. He has had no falls or injuries since returning home. No history of any trauma or blows to the head. There have been no recent visual changes. ENT: Negative except for some chronic nasal and sinus congestion. PULMONARY: Marked dyspnea on exertion. Chronic cough. He has had some intermittent bloody sputum. Does have a history of recent lung biopsy. Wears CPAP for obstructive sleep apnea. CARDIAC: He has had no recent chest pain. Does have history of nonobstructive coronary artery disease. Last heart catheterization in 2008. History of nonischemic cardiomyopathy in the past related to his alcohol abuse. No recent chest pain or angina. The patient does use CPAP with oxygen at night. He has had no orthopnea. GASTROINTESTINAL: No nausea, vomiting, or diarrhea. Struggles with opioid- induced constipation. GENITOURINARY: No recent voiding symptoms. No flank pain or dysuria. ADMIT: 05/31/2017 RM/LOC: 312 [facility] MR#: [id number] [facility] [address] [address] IVONNE TORRES [address] [place] [address] History and Physical SEX: M AGE: 71 : 1945 MUSCULOSKELETAL: Chronic intractable back pain. Post-laminectomy syndrome. History of 2 previous back surgeries with chronic pain. INTEGUMENT: No rashes or areas of skin breakdown. ENDOCRINE: He is a type 2 diabetic. Diet controlled. HEMATOLOGIC: Does have past history of 2 prior cancers and has had recent lung biopsy. PSYCHIATRIC: Does have past history of depression and anxiety. PHYSICAL EXAMINATION: VITAL SIGNS: At this time, temp is 97, pulse 69, respirations 18, blood pressure 108/54, O2 saturation 91%. His current weight is 174 pounds. GENERAL: The patient is a 71-year-old male, who appears older than his stated age. He is very somnolent. He will arouse when stimulated. We will open his eyes and answer a few questions but then nods back off and falls asleep. He is in no acute distress. He is having no significant respiratory distress at this time. HEENT: Pupils are equal and reactive. Sclerae nonicteric. Conjunctivae noninflamed. Extraocular movements appear to be intact. Nose and throat at this time are noninflamed. Mucous membranes are somewhat dry. NECK: Supple. No nuchal rigidity. No meningeal signs. No neck masses. No neck vein distention. LUNGS: Noted to be diminished throughout. Breath sounds are coarse. He has a rattly upper airway cough. HEART: Noted to have a regular rhythm and rate. No murmurs. No lifts, thrills, or heaves. No evidence of failure at this time. ABDOMEN: Soft, nontender, and nondistended. Bowel sounds are normoactive. No CVA or suprapubic tenderness. GENITALIA: Normal male. EXTREMITIES: He has no clubbing or cyanosis. No significant peripheral edema. No calf tenderness or signs of thrombophlebitis. He is moving all extremities but has marked generalized weakness. NEUROLOGIC: As noted, he is very somnolent. Difficult to get him to answer questions and respond without falling back to sleep. Somewhat obtunded, but I cannot appreciate any new focal deficits. ASSESSMENT AT THE TIME OF ADMISSION: 1. Altered mental status with unresponsive episode at home prior to admission. 2. Abnormal CT of the head with significant change since his last previous head CT on 05/19/2017. 3. 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 4. Severe chronic obstructive pulmonary disease, oxygen dependent. 5. Chronic respiratory failure with hypoxia. 6. Chronic congestive heart failure. 7. Chronic hyponatremia. 8. Hypertension. ADMIT: 05/31/2017 RM/LOC: 312 [facility] MR#: [id number] [address] [address] IVONNE TORRES [facility] [place] [address] History and Physical SEX: M AGE: 71 : 1945 9. Tobacco use disorder. 10.Chronic pain syndrome. 11.Iatrogenic narcotic dependence with overuse of opioid pain medications. 12.Chronic intractable back pain/post laminectomy syndrome. 13.History of renal cell carcinoma, status post right nephrectomy. 14.History of esophageal cancer, status post distal esophagectomy. 15.Marked debility secondary to his long-standing pulmonary disease. 16.Type 2 diabetes, diet controlled. PLAN: Plan is to admit the patient to the ICU. Neurosurgical consultation has been obtained. Dr. Ralph recommends close following of his neurologic status with frequent cranial checks. We will monitor him closely. We will gently hydrate with IV fluids. We will hold his current pain medications for the present time. If he is having severe pain, we will use IV morphine. We will arrange for an MRI of the head with and without contrast on 06/01/2017, and pursue further workup dependent upon the results of his MRI. Do suspect that a great deal of his altered mental status may be medication related at this time. Gustavo Obrien MD/ shavon JOB #: [id number] CC: Jamal Ennis, Attending Physician Jamal Ennis, Family Physician
--- NOTE | 2017-06-03 01:25 | ER ---
ADMIT: 05/31/2017 RM/LOC: ER [facility] MR#: [id number] [address] [address] IVONNE SORENSEN [address] [place] [address] Emergency Room Report SEX: M AGE: 71 : 1945 DATE: 05/31/2017 TIME: 11:41 Please refer to my T-sheet for complete H and P. HISTORY OF PRESENT ILLNESS: Briefly, the patient is a 71-year-old who is actually known well to the Emergency Department for multiple visits. He has COPD and coronary disease. He has a remote history of esophageal cancer and renal cell cancer. He comes in. He had a good day yesterday, family said he was up and normal today and then he just would not respond, they called EMS, they gave him some Narcan which seemed to help somewhat, he does have a history of chronic pain. Upon arrival, he is still very somnolent but arouses and talks at times. PHYSICAL EXAMINATION: VITAL SIGNS: Blood pressure 128/73, pulse 65, respirations 20, temp 97.7, and sat 97%. GENERAL: Lethargic. HEENT: Grossly normal. LUNGS: Slightly coarse. HEART: Regular. ABDOMEN: Soft. SKIN: No rash. NEURO: He localizes, talks, moves spontaneous, opens his eyes, but he is slow and very lethargic. EMERGENCY DEPARTMENT COURSE: CBC was normal except hemoglobin 11.3. Chemistries normal except sodium 133. Tylenol level was 15.9. Salicylate is 3.7. UA was normal except 2 red cells. ETOH was negative. Tox screen negative. Thyroid studies normal. ABG showed a pH 7.465, pCO2 of 32.5, PO2 of 64.7. Chest x-ray, no acute infiltrate. CT head revealed a cerebellar hemorrhagic lesions, etiology is uncertain. At this point, we ordered coags. I talked to Dr. Ralph of Neurosurgery, he is going to come and evaluate, and I talked to Dr. Obrien, we will admit to the hospital. ASSESSMENT: 1. Intracerebellar hemorrhagic lesions. 2. Decreased level of consciousness. PLAN: Admit to the ICU under the care of Dr. Obrien and Dr. Ralph. Sekou Emmanuel MD/ shavon JOB #: [id number] CC: Sekou Emmanuel MD, Attending Physician Jamal Ennis MD, Family Physician
--- NOTE | 2017-06-05 08:42 | CO ---
ADMIT: 05/31/2017 RM/LOC: 412 [facility] MR#: [id number] [address] [address] IVONNE TORRES [address] [place] [address] Consultation SEX: M AGE: 71 : 1945 DATE OF CONSULTATION: 06/02/2017 ATTENDING PHYSICIAN: Jamal Ennis CONSULTING PHYSICIAN: Melva Manzanares APRN TIME IN: 10:45. TIME OUT: 11:30. REASON FOR CONSULTATION: Supportive care consultation was requested by Dr. Huang for discussion of goals for care. HISTORY OF PRESENT ILLNESS: Mr. Torres is a pleasant 71-year-old male with a very complicated past medical history including severe COPD, heart failure, history of esophageal cancer, history of renal cell cancer, and a history of depression. He has had multiple hospitalizations and ER visits over the course of the past year. He was last here when he was admitted on May 19 with healthcare-acquired pneumonia and COPD exacerbation. It is of note that he has had issues with noncompliance in regard to smoking cessation and fluid restriction, which has drastically complicated his medical picture and resulted in multiple hospital stays. I did see the patient in supportive care consultation on May 25. Please see my dictation from that date for full details of consultation, but in summary, the patient at that time, desired to be a full code status. We had an extensive discussion regarding his actions and how his noncompliance effects his overall health status and decline. He assured me at that time that he was going to try to stop smoking and follow fluid resuscitation. At that time, he was not ready to focus strictly on comfort or hospice care. I was very clear with him during that visit that should he continue to decline and not follow recommendations, that he will likely pass away in the near future. He eventually discharged back home with his . He was readmitted to the hospital through the emergency room on May 31 after presenting with decreased level of consciousness. There was some concern that he had potentially taken too many oxycodones. He does have a history of chronic pain and opioid dependence. Narcan was given in the emergency room, and he did respond somewhat. However, it sounds like the emergency staff is quite familiar with him and felt that his cognitive status was not at his baseline. Therefore, a CT scan was done that showed multiple parenchymal lesions concerning for metastases. Neurosurgery did evaluate the patient as has Oncology. At this time, Oncology is suspicious that the lesions maybe from an infectious process, and lab evaluation is pending. Infectious Disease is scheduled to see the patient, and biopsy may be completed in the future. Due to his complexities, supportive care consultation was requested to discuss goals for care. In terms of advance directives, the patient is a full code. He has not completed any sort of advance directives. His , Joanna Torres, whose phone number is [phone] is his next of kin medical decision maker. ADMIT: 05/31/2017 RM/LOC: 412 [facility] MR#: [id number] [address] [place] [id number] [address]OR[address]IVONNE [address] [place] [address] Consultation SEX: M AGE: 71 : 1945 Symptomatically, he does complain of a headache and chronic pain over the low back. He is also constipated. He is weak and fatigued. Please see my prior dictation for the patient's past medical, surgical, social, and family history. ALLERGIES: THE PATIENT IS ALLERGIC TO PENICILLIN. CURRENT MEDICATIONS: Please see the patient's MAR for specific routes and dosages. His current medications are as follows: 1. Percocet. 2. Flomax. 3. Effexor. 4. Neurontin. 5. Coreg. 6. Zestril. 7. Zocor. 8. Protonix. 9. DuoNeb. 10.Potassium chloride. 11.Brovana. 12.Spiriva. 13.Atrovent. 14.Pulmicort. 15.Proventil. 16.Mucinex. 17.Zofran. 18.Phenergan. 19.Lasix. 20.Nitrostat. 21.Maalox. 22.Tylenol. 23.Colace. 24.Zofran. 25.Morphine. 26.Habitrol. FUNCTIONAL REVIEW: Prior to his stay, he was at home. He was requiring some assistance with ADLs. He could ambulate. His palliative performance scale prior to admission was around 50% to 60%. Currently, he is mostly in the chair. He is requiring considerable assistance to occasional assistance with ADLs. His current palliative performance scale is at 50% to 60%. REVIEW OF SYSTEMS: A 10-point review of systems was completed, and other than those pertinent positives and negatives mentioned in the HPI, it is negative. PHYSICAL EXAMINATION: GENERAL: The patient examined in the chair. He is in no acute distress. ADMIT: 05/31/2017 RM/LOC: 412 [facility] MR#: [id number] [address] [place] [phone] IVONNE TORRES [facility] [place] [address] Consultation SEX: M AGE: 71 : 1945 VITAL SIGNS: Temperature 97.4, pulse 72, respirations 22, blood pressure 153/83, and oxygen 98% on room air. HEENT: Head is normocephalic. Pupils are 3 mm and brisk. Oral mucosa pink and moist with fair dentition. NECK: Supple. RESPIRATORY: Respirations are equal and nonlabored at rest. LUNGS: Diminished throughout. CARDIOVASCULAR: Rate and rhythm regular without murmurs, rubs, or gallops. Trace bilateral lower extremity edema noted. GASTROINTESTINAL: Soft and nontender. Bowel sounds are hypoactive. Last bowel movement was 2 days ago. MUSCULOSKELETAL: Generalized weakness. No obvious joint deformities. INTEGUMENTARY: Skin is fragile. No obvious rashes or wounds. NEUROLOGIC: Alert and oriented x3. He will follow commands. PSYCHIATRIC: Calm and cooperative. DIAGNOSTIC DATA: Sodium 135, potassium 4.1. BUN 14, creatinine 0.9. Total protein 6.7, albumin 3.1. WBC is 9.2, hemoglobin 11.2, hematocrit 33.1, and platelets are 201. IMPRESSION: 1. Physical debility. 2. Chronic pain. 3. Malaise. 4. Palliative care. 5. Fatigue. 6. Constipation. 7. Depression. 8. Moderate protein-calorie malnutrition. 9. Heart failure. 10.Chronic obstructive pulmonary disease. 11.History of esophageal cancer. 12.History of renal cancer. 13.The patient is a full code. PLAN: 1. I was able to meet with the patient and his at the bedside. We reviewed the patient's overall status and goals for the time ahead. We again discussed his multiple chronic issues and the high risk for ongoing decline related to his lung and heart issues. He reports that he has had ongoing tobacco use despite our discussion last week. We also discussed the new findings in his brain, and he is aware that this could represent an infectious or malignant process. At this point, he is hoping to get more answers through the tests that are being performed and agrees to ongoing discussions in the time ahead. He does acknowledge that things were harder for him at home at this time and that he has gotten weaker. Therefore, both he and his are open to the patient going somewhere for rehab at discharge. I have contacted Social Work to assist with ADMIT: 05/31/2017 RM/LOC: 412 [facility] MR#: [id number] [address] [address] IVONNE TORRES [address] [place] [address] Consultation SEX: M AGE: 71 : 1945 this. 2. We did review code status at length as we did during his last hospital stay. The patient's does interrupt our discussion and tries to speak for the patient, stating that she is the decision maker and that he is "a full code." I did explain that she is the next of kin decision maker, but at the present time, the patient is alert and oriented and able to make his own decisions regarding his wishes. We did discuss the burden versus benefit of full code status versus do not resuscitate/do not intubate status with the patient's known multiple chronic issues and overall debility. I am very clear with him that the burden of resuscitation likely outweighs the benefit given his various issues. He verbalizes understanding of this but states that he wishes to be a full code. This is accurately reflected in the chart. 3. The patient does suffer from chronic pain, and Primary Care is managing this and have restarted his Percocet. 4. In terms of his bowel movements, he has not had a BM for two days. However, at this point, he wants to hold off on the laxatives until tomorrow in the hopes that decreased pain medication will result in him having a bowel movement. 5. Overall, this is a difficult situation. Even prior to the finding of these new cerebellar lesions, the patient was having ongoing decline and issues with compliance. During our previous discussions, he was not open to more of a comfort or hospice approach and agreed to make lifestyle modifications in the hopes that his health status was stabilized and that he could stay out of the hospital. Pending the outcomes of his testing, we will have ongoing discussions regarding goals in the time ahead. Much support was given to the patient's during our discussion, and I am happy to continue to follow along. We would like to thank Dr. Huang for the invitation to participate in this patient's care. Total consultation time was 45 minutes from 10:45 to 11:30 with 25 minutes from 10:50 to 11:15 spent [id number] with the patient and family discussing goals for care and providing counseling and support. We will continue to follow along in the care of this kind patient. Melva Manzanares APRN/ shavon JOB #: [id number] CC: Jamal Ennis, Attending Physician Jamal Ennsi, Family Physician
--- NOTE | 2017-06-07 00:18 | CO ---
ADMIT: 05/31/2017 RM/LOC: 412 [facility] MR#: [id number] [address] [phone] IVONNE TORRES [address] [place] [address] Consultation SEX: M AGE: 71 : 1945 DATE OF CONSULTATION: 06/01/2017 ATTENDING PHYSICIAN: Jamal Ennis CONSULTING PHYSICIAN: Orion Youssef MD HISTORY OF PRESENT ILLNESS: This is a pleasant 71-year-old gentleman, who has been admitted to hospital back in May 15 for cough, hemoptysis, and weakness, and during that time, he has undergone workup for pulmonary embolism or malignancy and the CAT scan and then a consolidation area in his lung has been biopsied by CT guidance. The biopsy has come back as benign. He has a history of renal cancer resection 10 years ago and then history of esophageal cancer. I do not have any records of this, and he has appendectomy and hernia repair. He has a strong history of smoking, though he has been discharged on May 15, after his hyponatremia resolved and then he has come down with pneumonia on May 19, hypoxic respiratory failure, hyponatremia, and then he had been placed on CPAP to continue on the floor. Has been treated for HCAP with vancomycin and meropenem. He has come back again with the shortness of breath on May 28 and then he has had admitted again on May 31 for mental changes and admitted to the hospital. The workup at this time has revealed abnormal MRI of the brain and the abnormal CAT scan. Basically, it has shown a change from May 13 and May 19 CAT scans showing multiple round, dense parenchymal lesions concerning for metastasis. Then, an MRI has revealed innumerable enhancing intracranial lesions suggestive of intracranial metastatic disease, less likely multiple abscesses. Some of them appear hemorrhagic based on T1 signal characteristics. He has been seen by Dr. Ralph and then with Oncology consult has been requested. His rest of the scans does not reveal any obvious primary. He does have history of kidney cancer operated. He has also history of esophageal cancer. Denies any fevers or chills. Denies any immunosuppressive condition, and he is going to be further worked up. PAST MEDICAL HISTORY: As mentioned above is rather complicated, mostly COPD, smoking related issues and oxygen dependence, chronic respiratory failure, type 2 diabetes, hypertension, hyperlipidemia, depressive disorder, osteoarthritis, family history. Daughter of the patient, she from a small cell lung cancer. FAMILY HISTORY: Positive for diabetes and coronary artery disease. SOCIAL HISTORY: He is retired. Worked for the [employer]. Lives at home with his . History of heavy smoking and current smoker. Prior history of alcohol abuse. REVIEW OF SYSTEMS: At the time of my visit, he seems to be alert, awake, and oriented. No nausea, vomiting, diarrhea. No night sweats, fevers, chills. No cough or sputum. No chest pain. Denies any exposure to any cats or dogs. He does have a dog at home, but no cat. No visits overseas. No blood transfusions or drug use. Rest of the systems are negative. ADMIT: 05/31/2017 RM/LOC: 412 [facility] MR#: [id number] [address] [place] [id number] IVONNE TORRES [address] [facility] [place] [place] [address] Consultation SEX: M AGE: 71 : 1945 PHYSICAL EXAMINATION: VITAL SIGNS: Temperature 98, blood pressure 110/70, pulse rate 88, respirations 20. HEAD, EARS, EYES, NOSE, THROAT EXAM: Normocephalic, atraumatic. Extraocular muscles intact. NECK: Supple. No JVD. No lymph nodes palpable. CHEST: Sounds clear to auscultation and percussion. Decreased on both sides bilaterally. HEART: Normal S1, S2. No S3, S4. ABDOMEN: Soft, nontender. No organomegaly. Bowel sounds positive. EXTREMITIES: No cyanosis, clubbing, or edema. LABORATORY DATA: WBC count 5.2, hemoglobin 11.2, hematocrit 33, platelets 201. ASSESSMENT AND PLAN: Mr. Torres is a pleasant 71-year-old gentleman with the abnormal brain-enhancing lesions on his MRI, very suggestive of toxoplasmosis. The patient is not immunocompromised and does not seem to have the risk factors for toxoplasmosis, but this infection has been reported in immunocompromised people too. I will make sure we exclude the possibility of toxoplasmosis or nocardiosis or aspergillosis or infection-type etiology, as these lesions were not there on May 13 and and all of a sudden they appeared so many. This is rather unusual for a cancer to come this quickly. As far as cancer history, he has kidney cancer removal and esophageal, and it is possible if any of them they were truly cancer in advanced stage, they can present with metastatic disease, but I would expect to see them in the liver or other parts first or bones. I will have to workup the toxoplasma, immunoglobulin G, immunoglobulin M, ask our Radiology colleagues if they could do MR spectroscopy to help to differentiate this is an infection, abscess, toxoplasmosis, or tumor. If comes to worse, we can ask Neurosurgery to see if one of these lesions can be amenable to biopsy. I will then also suggest doing a bone scan or doing a PET scan that will help to determine if there is any primary anywhere else. Again, the nature of these lesions and the MRI pictures as well as the interval they developed makes me think that this is so very possible to be infectious etiology related and is not cancer related. I went over about the prognosis, expectations, side effects. All the questions were answered. This encounter took 60 minutes, 35 minutes was [id number]. Orion Youssef MD/ shavon JOB #: [id number] CC: Jamal Ennis, Attending Physician Jamal Ennis, Family Physician
--- NOTE | 2017-06-09 12:33 | OR ---
ADMIT: 05/31/2017 RM/LOC: 310 [facility] MR#: [id number] [address] [address] IVONNE SORENSEN [address] [place] [address] Operative/Delivery Room Report SEX: M AGE: 71 : 1945 SURGERY DATE: 06/08/2017 SURGEON: Bhupendra Hoskins MD PREOPERATIVE DIAGNOSIS: Multiple intracranial lesions with question of both infection and cancer. POSTOPERATIVE DIAGNOSIS: Multiple intracranial lesions with question of both infection and cancer. PROCEDURE: Stereotactic-guided right frontal craniotomy for resection of a portion of the right middle frontal gyrus inclusive of multiple lesions for both microbiological and pathological analysis. PHARMACY TECHNICIAN INPATIENT: Marily Green APRN DESCRIPTION OF PROCEDURE: After gaining informed consent, the patient was taken to the operating theatre, placed under general endotracheal anesthesia. He was prepped and draped in usual sterile fashion. A time-out was utilized to ascertain the correct site and side of surgery as well as other pertinent patient historical information. Counts were obtained at the beginning and at end of the case with no change betwixt two. Antibiotics were given within 1 hour of incision. His face was co-registered with the BrainLAB System and then, what appeared to be the middle right frontal gyrus with 3 to 4 lesions within it was delineated on the right frontal region. Once this was done, he was prepped and draped in usual sterile fashion. An incision was then fashioned, this was then taken down to single myocutaneous flap and self-retaining retractors were then placed. An Shelley bit was brought into the field to fashion a single bur hole and then a cookie-cutter type cranial flap was removed. The dura was extensively adherent to this and was irreparable for closure. The brain was visualized and this gyrus was delineated. I bipolar electrocauterized that area including some small veins and very small arteries transiting the area and then utilizing #2 [place], resected this in total. Towards the lateral aspects of it, it was not clear if I had taken enough to get all of the possible tissue, so as such, I resected some further edges of this area and sent this off for microbiological analysis. Resecting further medial aspect of this lead me to delineate the internal contents of one of these lesions which appeared to be yellowish and liquid in appearance. This did appear to be possibly purulent. This area was swabbed and then this was sent for microbiological as well as pathological analysis. Once all this had been obtained, pristine hemostasis was gained and attention was turned to closure. The dura was repaired where possible and then onlay DuraGen was placed. A central tack-up was placed to the bone flap and DuraSeal was placed over that. The bone flap was then placed and screwed in utilizing a cranial plating system. The temporalis fascia was closed with simple interrupted 2-0 Vicryl, simple inverted interrupted 2-0 Vicryl was used in the subgaleal tissue and ADMIT: 05/31/2017 RM/LOC: 310 [facility] MR#: [id number] [address] [place] [phone] IVONNE SORENSEN [address] [place] [address] Operative/Delivery Room Report SEX: M AGE: 71 : 1945 hari on the skin. Ms. Cristobalham assisted with suction, retraction, and closure at the end of the case. COMPLICATIONS: None. ESTIMATED BLOOD LOSS: Charted. SPECIMEN: As stated. DISPOSITION: Extubated and taken to the Neurosurgical Intensive Care Unit. Bhupendra Hoskins MD/ shavon JOB #: [id number] CC: Jamal Ennis, Attending Physician Jamal Ennis, Family Physician
--- NOTE | 2017-06-12 11:58 | CO ---
ADMIT: 05/31/2017 RM/LOC: 312 [facility] MR#: [id number] [address] [address] IVONNE SORENSEN [address] [place] [address] Consultation SEX: M AGE: 71 : 1945 DATE OF CONSULTATION: 05/31/2017 ATTENDING PHYSICIAN: Jamal Ennis CONSULTING PHYSICIAN: Can Ralph MD HISTORY OF PRESENT ILLNESS: I saw this 71-year-old male in the emergency room, came in with history was given by the caregiver or daughter. She indicated that he went to the bathroom and when in the bathroom, he collapsed and became unresponsive and he did not have any tonic-clonic movements in his upper or lower extremities. Went ahead and got the returns clerk, came in and transported him to the hospital. Initially in the hospital, he was drowsy, initially unresponsive. Became better as the time went by, and by the time I saw him, he was rather awake but easily falls asleep. He denies any headaches. He has no double vision. He does not have any weakness in his upper or lower extremities except drags his left foot. He has had 4 previous surgeries on his low back. He did not have any other complaints. The only thing he mentioned was that for the past 2 weeks or so, he has his tendency of falling asleep when he goes to the bathroom. Investigations carried out here included primarily a CT scan of the brain. CT scan of the brain showed multiple lesions, 1 in the left occipital area and 2 in the left cerebellar and 1 in the right cerebellar hemispheres. He has tiny hypointense lesions with surrounding low density areas, which is indicative of edema. There was no hydrocephalus. There was really no gross mass effect from these lesions. It is interesting that he had a CT scan done on the 19 of May of this year, which was normal. Relevant portion of his medical history is that he has a history of CA of the esophagus and also renal cell CA requiring right nephrectomy and these were carried out according to the daughter or caregiver more than 10 years ago. PAST MEDICAL HISTORY: He has a history of congestive heart failure, COPD, CA of the esophagus, renal-cell CA, and cardiac hyponatremia. SOCIAL HISTORY: He smokes a pack of cigarettes per day. Does not drink alcohol. ALLERGIES: ALLERGIC TO PENICILLIN. REVIEW OF SYSTEMS: He denies any headaches. No neck pain. No chest pain. No abdominal pain. Denies any weakness in the upper or lower extremities. No numbness no tingling. He was up and around yesterday and he fatigued easily. FAMILY HISTORY: Strong family history for cancer and heart disease. PHYSICAL EXAMINATION: VITAL SIGNS: This is a 71-year-old male with blood pressure was 123/70, pulse was 73, was regular, respirations 16, temperature is 97.7, and O2 sats 96% on room air. ADMIT: 05/31/2017 RM/LOC: 312 [facility] MR#: [id number] [address] [place] [phone] IVONNE SORENSEN [address] [place] [address] Consultation SEX: M AGE: 71 : 1945 GENERAL: He was awake and alert while I was talking to him. HEENT: He is normocephalic. NECK: No tenderness on palpating the cervical spinous processes. No bruits audible in the neck. CHEST: Clear. HEART: Rate was regular. ABDOMEN: Soft. NEUROLOGICAL: Cranial nerve examination was normal. The motor examination was normal except for some very mild weakness of the dorsiflexion of the left foot and also the plantar flexors of the left foot. Reflexes are normal. The upper extremities and knee jerks were brisk bilaterally, but symmetrically. The ankle jerks were absent bilaterally. Toes were downgoing. Finger-nose testing was well done on the right side. It was abnormal on the left. There was no nystagmus. Visual iyer are normal to confrontation. IMPRESSION: I do not think that the lesions that were seen intracranially were responsible for his passing out in the bathroom. I wonder whether the pain medication he is presently on is not having some effect on his ability to stay awake. Even while I was examining him, he would doze off. He is presently on Percocet and Soma, and one could maybe try to either reduce the dose or see if he could be weaned off it and see whether this affects his ability to stay awake. With regard to the lesions, it is unusual to just within two weeks to see all these lesions we are seeing now. My recommendation is just to be sure, we should go ahead and get an MRI of the brain with and without contrast and if these confirms the lesions that were seen on the CT scan, then one might consider doing biopsy of it. If we could not find any other source of a primary because these are multiple lesions, chances are pretty high that these are metastatic disease. So, primary could be obtained, and there will be no need to subject him to any neurosurgical procedure judging from the fact that he has history of COPD and history of medical problems of congestive heart failure. However, if it is not possible to come up with a diagnoses for sure, if the left occipital lesion that I see is still present that is pretty close to the surface, and it could easily be amenable to a stereotactic biopsy. Can Ralph MD/ shavon JOB #: [id number] CC: Jamal Ennis, Attending Physician Jamal Ennis, Family Physician
--- NOTE | 2017-06-16 10:05 | CO ---
ADMIT: 05/31/2017 RM/LOC: [address] [facility] MR#: [id number] [id number] IVONNE TORRES [address] [place] [address] Consultation SEX: M AGE: 71 : 1945 DATE OF CONSULTATION: 06/02/2017 ATTENDING PHYSICIAN: Jamal Ennis CONSULTING PHYSICIAN: Ngozi Slaughter MD REASON FOR CONSULT: Multiple brain lesions. Thank you, Dr. Youssef, for the consult and involving me in this patient's care. HISTORY OF PRESENT ILLNESS: Mr. Torres is a 71-year-old man, who has had multiple hospital admissions within the last six months. He was recently discharged around one week ago where he was treated with hospital-acquired pneumonia. He has had multiple ER visits for shortness of breath and hemoptysis or dark colored sputum, and on 05/13 biopsy was done on the right hilar mass, which showed benign lung tissue with anthracosis and changes consistent with organizing pneumonia. He also had a CT head on 05/13 for balance issues and again on 05/19 for headache, which were negative. During his current admission on 05/31, where he presented with decreased level of consciousness and he also had an episode of syncope in the bathroom, and he was noted to have multiple round, dense parenchymal lesions concerning for metastasis or [employer] melanoma. He underwent a brain MRI with and without contrast, which showed multiple ring enhancing intracranial lesions. A CT chest, abdomen, and pelvis was again done, which again showed soft tissue mass- like appearance of the right hilar structure with residual improvement, nonspecific mediastinal lymph nodes, and surgically absent right kidney. No masses were noted in the abdomen. The patient's does report him eating undercooked pork and he likes to eat it extremely rare. He denies any recent travel or any sick contacts. He is a retired diplomatic officer. He denies any recreational drug use. He has also been on and off steroids for COPD exacerbation within last few months. PAST MEDICAL HISTORY: 1. Severe COPD, on oxygen. 2. Continued tobacco use. 3. Chronic respiratory failure with hypoxia. 4. Type 2 diabetes mellitus. 5. Hypertension. 6. Hyperlipidemia. 7. Alcohol use disorder, in remission. 8. Osteoarthritis. 9. Depression. 10.History of renal cell cancer, status post right nephrectomy. 11.History of esophageal cancer, status post distal esophagectomy with colon interposition. 12.History of alcoholic pancreatitis. 13.Obstructive sleep apnea, on CPAP. 14.Chronic back pain. 15.Chronic GERD. ADMIT: 05/31/2017 RM/LOC: 412 [facility] MR#: [id number] [address] [address] IVONNE TORRES [address] [facility] [place] [address] Consultation SEX: M AGE: 71 : 1945 16.Degenerative disc disease. PAST SURGICAL HISTORY: 1. Back surgery x2. 2. Right nephrectomy. 3. Distal esophagectomy. 4. Hernia repair. ALLERGIES: PENICILLIN, WHICH CAUSES SWELLING OF HIS FACE. CURRENT MEDICATIONS: Include: 1. Coreg. 2. Effexor. 3. Flomax. 4. Klor-Con. 5. Lasix. 6. Neurontin. 7. Protonix. 8. Zestril. 9. Zocor. 10.Brovana. 11.DuoNeb. 12.Spiriva. 13.Pulmicort. 14.Habitrol. FAMILY HISTORY: Positive for cancer, diabetes, and coronary artery disease. SOCIAL HISTORY: The patient lives at home with his and their son. Smokes 1-pack per day. Denies any current use of alcohol or recreational drug use. REVIEW OF SYSTEMS: A 10-point review of systems negative except as mentioned in HPI. PHYSICAL EXAMINATION: VITAL SIGNS: Current temperature 97.4, heart rate 72, respirations 22, blood pressure 153/83, 98% on room air. GENERAL: No acute distress. HEENT: Head is normocephalic and atraumatic. Extraocular movements are intact. LYMPH: No palpable anterior/posterior cervical or supraclavicular lymphadenopathy. NECK: Soft and supple. CHEST: Clear to auscultation bilaterally. No wheezes, rales, or rhonchi. CARDIOVASCULAR: S1 and S2 heard. Regular rate and rhythm. ABDOMEN: Soft, nontender, and nondistended. Active bowel sounds. EXTREMITIES: No peripheral edema. PSYCH: Normal affect. Memory intact. LABORATORY DATA REVIEW: CBC yesterday shows white count of 9.2, hemoglobin ADMIT: 05/31/2017 RM/LOC: [address] [facility] MR#: [id number] [id number] [address] IVONNE TORRES [address] [place] [address] Consultation SEX: M AGE: 71 : 1945 11.2, and platelets of 201. BMP shows creatinine of 0.9. ASSESSMENT AND PLAN: 1. Multiple ring-enhancing brain lesions - There is a broad differential diagnosis including infectious versus malignancy. Infections may include bacterial anaerobic infections or streptococcal given his recent pneumonia. Toxoplasma is also possibility given his MRI images, and history of consumption of undercooked pork. Malignancy may include primary [employer] lymphoma versus melanoma or secondaries, however, no other mass was identified on CT scan of the chest, abdomen, pelvis. At this time, I will empirically start him on treatment for toxoplasma with sulfadiazine, leucovorin, and pyrimethamine. I will also consult Ophthalmology to rule out any ocular toxoplasma given his blurry vision. If that shows evidence of any toxoplasma uveitis, then we can hold off on brain biopsy. Given his recent pneumonia and possibility for bacterial brain abscess, I will start him on meropenem and vancomycin. Ideally, he will need brain biopsy as he has taken aspirin it will be postponed for seven days. He is otherwise asymptomatic at this time. I will also check HIV test, serum cryptococcal antigen, and IgG subclasses level. Dr. Youssef already ordered a toxoplasma antibody and Aspergillus antigen. Neurosurgery is on board. 2. Chronic obstructive pulmonary disease, on oxygen. 3. History of renal and esophageal cancer. 4. Obstructive sleep apnea. Thank you for the interesting consult and I will continue to follow the patient. Ngozi Slaughter MD/ shavon JOB #: [id number] CC: Jamal Ennis, Attending Physician Jamal Ennis, Family Physician
== END 2017-06-13 12:00 | DRG 23 ==
LOC: ER 11:41 → 3ICU 13:20 → 4PCU 13:20 → 3ICU 06-01 09:53 → 4PCU 06-01 15:03 → 3ICU 06-08 18:31 → 5MS 06-10 11:11
PROVIDERS: ADMIT Family Medicine
PROC: 00B70ZX Excision of Cerebral Hemisphere, Open Approach, Diagnostic (ICD-10-PCS; principal; 2017-05-31)
PROC: 02HV33Z Insertion of Infusion Device into Superior Vena Cava, Percutaneous Approach (ICD-10-PCS; 2017-06-12)
DX: G06.0 Intracranial abscess and granuloma (principal); G93.40 Encephalopathy, unspecified; J96.11 Chronic respiratory failure with hypoxia; E44.0 Moderate protein-calorie malnutrition; I42.6 Alcoholic cardiomyopathy; E87.1 Hypo-osmolality and hyponatremia; F11.20 Opioid dependence, uncomplicated; I11.0 Hypertensive heart disease with heart failure; I50.9 Heart failure, unspecified; E11.9 Type 2 diabetes mellitus without complications; J44.9 Chronic obstructive pulmonary disease, unspecified; M15.9 Polyosteoarthritis, unspecified; H70.92 Unspecified mastoiditis, left ear; K21.9 Gastro-esophageal reflux disease without esophagitis; I25.10 Atherosclerotic heart disease of native coronary artery without angina pectoris; E78.5 Hyperlipidemia, unspecified; G47.33 Obstructive sleep apnea (adult) (pediatric); G89.4 Chronic pain syndrome; F17.210 Nicotine dependence, cigarettes, uncomplicated; M54.9 Dorsalgia, unspecified; K59.03 Drug induced constipation; F10.21 Alcohol dependence, in remission; F32.9 Major depressive disorder, single episode, unspecified; Z85.528 Personal history of other malignant neoplasm of kidney; Z85.01 Personal history of malignant neoplasm of esophagus; Z99.81 Dependence on supplemental oxygen; Z90.5 Acquired absence of kidney; Z98.1 Arthrodesis status; Z79.82 Long term (current) use of aspirin; Z82.49 Family history of ischemic heart disease and other diseases of the circulatory system; Z86.79 Personal history of other diseases of the circulatory system